=== PATIENT | female | born 1955 | race Caucasian/White ===

== ENCOUNTER → 2017-12-25 | Outpatient (CLI) | payer MEDICARE ==
[2017-12-25 09:50] LABS: IMMATURE GRANULOCYTE % 0.3 % (0-3.0)
[2017-12-25 10:09] LABS: FREE T4 0.76 NG/DL (0.76-1.46); GLOMERULAR FILTRATION RATE > 60.0 (>45)
[2017-12-25 11:55] LABS: BLOOD UREA NITROGEN 19 MG/DL (7-18); GLUCOSE, FASTING 81 MG/DL (70-100)
[2017-12-25 11:56] LABS: ALKALINE PHOSPHATASE 45 U/L (45-117); ALT/SGPT 21 U/L (12-78); ANION GAP 8 MEQ/L (8-16); AST/SGOT 15 U/L (7-37); BILIRUBIN,TOTAL 0.4 MG/DL (0.2-1.0); CALCIUM LEVEL 9.1 MG/DL (8.8-10.2); CARBON DIOXIDE LEVEL 30 MEQ/L (21-32); CHLORIDE LEVEL 106 MEQ/L (98-107); CHOLESTEROL LEVEL 210 MG/DL (<200); CHOLESTEROL RISK RATIO 2.957 (<5); HDL CHOLESTEROL 71 MG/DL (>40); LDL CHOLESTEROL 123.2 MG/DL (<100); NON-HDL-C 139 MG/DL; POTASSIUM SERUM 4.2 MEQ/L (3.5-5.1); SODIUM LEVEL 144 MEQ/L (136-145); TOTAL PROTEIN 6.6 GM/DL (6.4-8.2); TRIGLYCERIDES LEVEL 79 MG/DL (<150)
[2017-12-25 11:57] LABS: ALBUMIN 4.1 GM/DL (3.2-5.2); ALBUMIN/GLOBULIN RATIO 1.64 (1.00-1.93); MAGNESIUM LEVEL 2.2 MG/DL (1.8-2.4)
[2017-12-25 12:03] LABS: HEMATOCRIT 39.6 % (36.0-47.0); HEMOGLOBIN 13.1 g/dl (12.0-16.0); MEAN CORPUSCULAR HEMOGLOBIN 30.6 pg (27.0-33.0); MEAN CORPUSCULAR HGB CONC 33.1 g/dl (32.0-36.5); MEAN CORPUSCULAR VOLUME 92.5 fl (80.0-96.0); PLATELET COUNT, AUTOMATED 243 10^3/uL (150-450); RED BLOOD COUNT 4.28 10^6/uL (4.00-5.40); RED CELL DISTRIBUTION WIDTH 12.2 % (11.5-14.5); WHITE BLOOD COUNT 5.9 10^3/uL (4.0-10.0)
[2017-12-25 12:08] LABS: BASO % 0.5 % (0.0-1.0); EOS # 0.2 10^3/uL (0.0-0.50); EOS % 2.9 % (0.0-3.0); LYMPH % 16.9 % (24.0-44.0); MONO # 0.5 10^3/uL (0.0-0.8); MONO % 8.1 % (0.0-5.0); NEUTROPHILS # 4.2 10^3/uL (1.8-7.7); NEUTROPHILS % 71.3 % (36.0-66.0)
[2017-12-27 10:36] LABS: TOTAL 25(OH) VITAMIN D 39.2 NG/ML (30.0-100.0)
== END ==
LOC: M LAB 09:08
DX: Z00.00 Encounter for general adult medical examination without abnormal findings (principal); M85.80 Other specified disorders of bone density and structure, unspecified site; G43.019 Migraine without aura, intractable, without status migrainosus; E78.5 Hyperlipidemia, unspecified; E55.9 Vitamin D deficiency, unspecified
CPT/HCPCS: 83735

== ENCOUNTER → 2018-01-31 | Outpatient (CLI) | payer OTHER | LOC: M WHC 14:25 | DX: Z12.31 Encounter for screening mammogram for malignant neoplasm of breast (principal); Z78.0 Asymptomatic menopausal state; Z80.3 Family history of malignant neoplasm of breast; Z80.0 Family history of malignant neoplasm of digestive organs | CPT/HCPCS: 77067 ==

== ENCOUNTER → 2018-02-01 | Outpatient (CLI) | payer OTHER | LOC: M PAIN 09:15 | DX: M79.7 Fibromyalgia (principal); G89.29 Other chronic pain; G43.909 Migraine, unspecified, not intractable, without status migrainosus; F32.9 Major depressive disorder, single episode, unspecified; F41.9 Anxiety disorder, unspecified; E78.5 Hyperlipidemia, unspecified; M85.9 Disorder of bone density and structure, unspecified; J30.1 Allergic rhinitis due to pollen; Z79.899 Other long term (current) drug therapy; Z88.0 Allergy status to penicillin; Z88.8 Allergy status to other drugs, medicaments and biological substances; Z91.09 Other allergy status, other than to drugs and biological substances; Z87.891 Personal history of nicotine dependence | CPT/HCPCS: G0463 ==

== ENCOUNTER → 2018-03-04 | Outpatient (CLI) | payer OTHER | LOC: M PAIN 09:15 | DX: M79.7 Fibromyalgia (principal); G43.909 Migraine, unspecified, not intractable, without status migrainosus; F31.9 Bipolar disorder, unspecified; F41.9 Anxiety disorder, unspecified; E78.5 Hyperlipidemia, unspecified; M85.80 Other specified disorders of bone density and structure, unspecified site; J30.2 Other seasonal allergic rhinitis; Z79.899 Other long term (current) drug therapy; Z88.0 Allergy status to penicillin; Z88.8 Allergy status to other drugs, medicaments and biological substances; Z87.891 Personal history of nicotine dependence; Z91.011 Allergy to milk products | CPT/HCPCS: G0463 ==

== ENCOUNTER → 2018-04-06 | Outpatient (CLI) | payer OTHER ==
[2018-04-06 11:38] LABS: BASO % 0.4 % (0.0-1.0); EOS # 0.1 10^3/uL (0.0-0.50); EOS % 0.9 % (0.0-3.0); HEMATOCRIT 33.9 % (36.0-47.0); HEMOGLOBIN 11.1 g/dl (12.0-15.5); IMMATURE GRANULOCYTE % 0.4 % (0-3.0); LYMPH # 0.8 10^3/uL (1.5-4.5); LYMPH % 9.9 % (24.0-44.0); MEAN CORPUSCULAR HEMOGLOBIN 30.2 pg (27.0-33.0); MEAN CORPUSCULAR HGB CONC 32.7 g/dl (32.0-36.5); MEAN CORPUSCULAR VOLUME 92.1 fl (80.0-96.0); MONO # 0.8 10^3/uL (0.0-0.8); MONO % 10.4 % (0.0-5.0); NEUTROPHILS # 6.2 10^3/uL (1.8-7.7); PLATELET COUNT, AUTOMATED 299 10^3/uL (150-450); RED BLOOD COUNT 3.68 10^6/uL (4.00-5.40); RED CELL DISTRIBUTION WIDTH 12.1 % (11.5-14.5)
[2018-04-06 12:02] LABS: ALBUMIN 3.4 GM/DL (3.2-5.2); ALBUMIN/GLOBULIN RATIO 1.17 (1.00-1.93); ALKALINE PHOSPHATASE 62 U/L (45-117); ALT/SGPT 19 U/L (12-78); ANION GAP 6 MEQ/L (8-16); AST/SGOT 13 U/L (7-37); BILIRUBIN,TOTAL 0.4 MG/DL (0.2-1.0); BLOOD UREA NITROGEN 18 MG/DL (7-18); CALCIUM LEVEL 8.9 MG/DL (8.8-10.2); CARBON DIOXIDE LEVEL 30 MEQ/L (21-32); CHLORIDE LEVEL 103 MEQ/L (98-107); CREATININE FOR GFR 0.95 MG/DL (0.55-1.30); GLOMERULAR FILTRATION RATE > 60.0 (>45); GLUCOSE, FASTING 73 MG/DL (70-100); POTASSIUM SERUM 4.7 MEQ/L (3.5-5.1); SODIUM LEVEL 139 MEQ/L (136-145); TOTAL PROTEIN 6.3 GM/DL (6.4-8.2)
[2018-04-08 00:06] LABS: HSV-1 DNA Negative (Negative); HSV-2 DNA Negative (Negative); Lyme Disease IgG/IgM Antibodie <0.91 ISR (0.00-0.90); Lyme Disease IgM Ab Quantitati <0.80 index (0.00-0.79)
== END ==
LOC: M LAB 10:50
DX: R52 Pain, unspecified (principal); R53.83 Other fatigue; Z86.19 Personal history of other infectious and parasitic diseases
CPT/HCPCS: 80053

== ENCOUNTER → 2018-04-12 | Outpatient (REF) | payer OTHER ==
[2018-04-12 15:24] LABS: BASO % 0.5 % (0.0-1.0); EOS # 0.1 10^3/uL (0.0-0.50); EOS % 1.4 % (0.0-3.0); HEMATOCRIT 33.1 % (36.0-47.0); HEMOGLOBIN 10.7 g/dl (12.0-15.5); IMMATURE GRANULOCYTE % 0.3 % (0-3.0); LYMPH # 1.4 10^3/uL (1.5-4.5); LYMPH % 17.3 % (24.0-44.0); MEAN CORPUSCULAR HEMOGLOBIN 30.1 pg (27.0-33.0); MEAN CORPUSCULAR HGB CONC 32.3 g/dl (32.0-36.5); MEAN CORPUSCULAR VOLUME 93.2 fl (80.0-96.0); MONO # 0.5 10^3/uL (0.0-0.8); MONO % 6.9 % (0.0-5.0); NEUTROPHILS # 5.8 10^3/uL (1.8-7.7); NEUTROPHILS % 73.6 % (36.0-66.0); PLATELET COUNT, AUTOMATED 423 10^3/uL (150-450); RED BLOOD COUNT 3.55 10^6/uL (4.00-5.40); RED CELL DISTRIBUTION WIDTH 11.9 % (11.5-14.5); RETIC HEMOGLOBIN EQUIVALENT 28.6 pg (24-36); RETICULOCYTE # 33.4 10^9/L (17-77); RETICULOCYTE % 0.9 % (0.5-1.5); WHITE BLOOD COUNT 7.9 10^3/uL (4.0-10.0)
[2018-04-12 15:40] LABS: FERRITIN 111 NG/ML (8-252); IRON (FE) 17 UG/DL (50-170); PERCENT SATURATION 7.3 % (13.2-45.0); RHEUMATOID FACTOR QUANT 18.1 IU/ML (<15.0); TOTAL IRON BINDING CAPACITY 233 UG/DL (250-450)
[2018-04-12 15:44] LABS: ERYTHROCYTE SEDIMENTATION RATE 105 mm/hr (0-30)
[2018-04-14 18:21] LABS: CPK CREATINE PHOSPHOKINASE 45 U/L (26-192)
[2018-04-16 00:12] LABS: ANA (HEP2) Negative (.)
[2018-04-17 08:57] LABS: CYCLIC CITRULLINATED PEPTIDE 4 units (0-19)
== END ==
LOC: M SFHCPLAZ 13:23
DX: D64.9 Anemia, unspecified (principal); R61 Generalized hyperhidrosis; R53.83 Other fatigue

== ENCOUNTER → 2018-04-13 | Outpatient (CLI) | payer OTHER | LOC: M RAD 09:45 | DX: R61 Generalized hyperhidrosis (principal); R91.8 Other nonspecific abnormal finding of lung field | CPT/HCPCS: 71046 ==

== ENCOUNTER → 2018-04-18 | Outpatient (REF) | payer OTHER ==
[2018-04-18 12:42] LABS: ERYTHROCYTE SEDIMENTATION RATE 77 mm/hr (0-30)
== END ==
LOC: M SFHCPLAZ 09:45
DX: R51 Headache (principal)

== ENCOUNTER → 2018-04-19 | Outpatient (REF) | payer OTHER | LOC: M LAB REF 18:27 | DX: I77.9 Disorder of arteries and arterioles, unspecified (principal) | CPT/HCPCS: 88305 ==

== ENCOUNTER → 2018-04-22 | Outpatient (CLI) | payer OTHER | LOC: M PAIN 08:45 | DX: M79.7 Fibromyalgia (principal); M81.0 Age-related osteoporosis without current pathological fracture; F32.9 Major depressive disorder, single episode, unspecified; F41.9 Anxiety disorder, unspecified; J30.1 Allergic rhinitis due to pollen; E78.5 Hyperlipidemia, unspecified; G43.D0 Abdominal migraine, not intractable; Z87.891 Personal history of nicotine dependence; Z79.899 Other long term (current) drug therapy; Z88.0 Allergy status to penicillin; Z88.8 Allergy status to other drugs, medicaments and biological substances | CPT/HCPCS: G0463 ==

== ENCOUNTER → 2018-04-27 | Outpatient (REF) | payer OTHER ==
[2018-04-27 12:06] LABS: ERYTHROCYTE SEDIMENTATION RATE 31 mm/hr (0-30)
[2018-04-27 12:33] LABS: ANION GAP 8 MEQ/L (8-16); BLOOD UREA NITROGEN 20 MG/DL (7-18); C REACTIVE PROTEIN QUANTITATIV < 0.30 MG/DL (0.00-0.30); CALCIUM LEVEL 9.3 MG/DL (8.8-10.2); CARBON DIOXIDE LEVEL 31 MEQ/L (21-32); CHLORIDE LEVEL 104 MEQ/L (98-107); CREATININE FOR GFR 0.93 MG/DL (0.55-1.30); GLOMERULAR FILTRATION RATE > 60.0 (>45); GLUCOSE, FASTING 81 MG/DL (70-100); POTASSIUM SERUM 4.4 MEQ/L (3.5-5.1); SODIUM LEVEL 143 MEQ/L (136-145)
== END ==
LOC: M SFHCPLAZ 09:17
DX: R51 Headache (principal)
CPT/HCPCS: 80048

== ENCOUNTER 2018-05-05 17:17 | Inpatient (IN) | payer OTHER ==
[2018-05-05 18:03] LABS: HEMATOCRIT 34.9 % (36.0-47.0); HEMOGLOBIN 11.2 g/dl (12.0-15.5); IMMATURE GRANULOCYTE % 0.5 % (0-3.0); LYMPH # 0.3 10^3/uL (1.5-4.5); LYMPH % 2.3 % (24.0-44.0); MEAN CORPUSCULAR HEMOGLOBIN 29.7 pg (27.0-33.0); MEAN CORPUSCULAR HGB CONC 32.1 g/dl (32.0-36.5); MEAN CORPUSCULAR VOLUME 92.6 fl (80.0-96.0); MONO # 0.4 10^3/uL (0.0-0.8); MONO % 2.9 % (0.0-5.0); NEUTROPHILS # 11.6 10^3/uL (1.8-7.7); PLATELET COUNT, AUTOMATED 291 10^3/uL (150-450); RED BLOOD COUNT 3.77 10^6/uL (4.00-5.40); RED CELL DISTRIBUTION WIDTH 13.8 % (11.5-14.5); WHITE BLOOD COUNT 12.3 10^3/uL (4.0-10.0)
[2018-05-05 18:11] LABS: INR 0.98; PROTHROMBIN TIME 13.1 SECONDS (12.1-14.4)
[2018-05-05 18:14] LABS: ALBUMIN/GLOBULIN RATIO 0.67 (1.00-1.93); ALKALINE PHOSPHATASE 68 U/L (45-117); ALT/SGPT 20 U/L (12-78); ANION GAP 8 MEQ/L (8-16); AST/SGOT 14 U/L (7-37); BILIRUBIN,DIRECT < 0.1 MG/DL (0.0-0.2); BILIRUBIN,TOTAL 0.3 MG/DL (0.2-1.0); BLOOD UREA NITROGEN 20 MG/DL (7-18); CARBON DIOXIDE LEVEL 28 MEQ/L (21-32); CHLORIDE LEVEL 100 MEQ/L (98-107); CPK CREATINE PHOSPHOKINASE 46 U/L (26-192); CREATININE FOR GFR 1.08 MG/DL (0.55-1.30); GLOMERULAR FILTRATION RATE 54.4 (>45); GLUCOSE, FASTING 203 MG/DL (70-100); LIPASE 150 U/L (73-393); POTASSIUM SERUM 5.1 MEQ/L (3.5-5.1); SODIUM LEVEL 136 MEQ/L (136-145); TOTAL PROTEIN 7.5 GM/DL (6.4-8.2); TROPONIN I < 0.02 NG/ML (< 0.10)
[2018-05-05] MEDS ORDERED: ISOVUE-370 76% 100ML VIAL (Q9967) As Ordered (18:17)
[2018-05-05 18:19] LABS: CK-MB VALUE MASS < 1.0 NG/ML (<3.6); MB/CK RELATIVE INDEX 2.17 (< OR =4); NT-PRO BNP 565 PG/ML (<125); THYROID STIMULATING HORMONE 0.203 uIU/ML (0.358-3.740)
[2018-05-05] MEDS: KETOROLAC 30 MG/ML VIAL (J1885) IV (18:19)
[2018-05-05 18:27] LABS: POSITIVE DIFF POS FLAG
[2018-05-05 18:28] LABS: NEUTROPHILS % 94.3 % (36.0-66.0)
[2018-05-05 18:48] LABS: ERYTHROCYTE SEDIMENTATION RATE 89 mm/hr (0-30)
[2018-05-05] MEDS: cefTRIAXone SOD 2 GM in D5W MINI-BAG PLUS 50 ML IV (19:19)
[2018-05-05] MEDS ORDERED: zolPIDEM TARTRATE 5 MG TAB PO (20:15)
[2018-05-05] MEDS: VANCOMYCIN HCL 1,000 MG, VIAL MATE ADAPTER 1 EACH in D5W 250 ML IV (21:00)
[2018-05-05] MEDS: diphenhydrAMINE 25 MG CAP PO (22:28)
[2018-05-05] MEDS: SENOKOT S TAB PO (22:29)
[2018-05-05] MEDS: LevoFLOXacin IV 750 MG in APPROPRIATE DILUENT 1 EA IV (22:29)
[2018-05-05] MEDS: ENOXAPARIN 40 MG/0.4 ML SYRINGE (J1650) SC (22:29)
[2018-05-05] MEDS: clonazePAM 1 MG TAB PO (22:39)
[2018-05-05] MEDS: PERCOCET 5MG/325MG TAB PO (22:54)
[2018-05-06] MEDS: VANCOMYCIN HCL 1,000 MG, VIAL MATE ADAPTER 1 EACH in D5W 250 ML IV ×2 (00:27→22:17)
[2018-05-06] MEDS: PERCOCET 5MG/325MG TAB PO ×5 (03:04→22:17)
[2018-05-06] MEDS: ACETAMINOPHEN TAB 650MG DOSE (2X325MG) PO ×2 (05:59→22:15)
[2018-05-06 06:30] LABS: EOS % 0.3 % (0.0-3.0); HEMOGLOBIN 10.4 g/dl (12.0-15.5); IMMATURE GRANULOCYTE % 0.7 % (0-3.0); LYMPH # 1.7 10^3/uL (1.5-4.5); LYMPH % 15.2 % (24.0-44.0); MEAN CORPUSCULAR HEMOGLOBIN 30.1 pg (27.0-33.0); MEAN CORPUSCULAR HGB CONC 32.5 g/dl (32.0-36.5); MEAN CORPUSCULAR VOLUME 92.8 fl (80.0-96.0); MONO # 0.9 10^3/uL (0.0-0.8); MONO % 7.9 % (0.0-5.0); NEUTROPHILS # 8.2 10^3/uL (1.8-7.7); NEUTROPHILS % 75.9 % (36.0-66.0); PLATELET COUNT, AUTOMATED 269 10^3/uL (150-450); RED BLOOD COUNT 3.45 10^6/uL (4.00-5.40); RED CELL DISTRIBUTION WIDTH 13.8 % (11.5-14.5); WHITE BLOOD COUNT 10.8 10^3/uL (4.0-10.0)
[2018-05-06 06:44] LABS: ANION GAP 7 MEQ/L (8-16); BLOOD UREA NITROGEN 16 MG/DL (7-18); CALCIUM LEVEL 8.9 MG/DL (8.8-10.2); CARBON DIOXIDE LEVEL 31 MEQ/L (21-32); CHLORIDE LEVEL 101 MEQ/L (98-107); CREATININE FOR GFR 0.86 MG/DL (0.55-1.30); GLOMERULAR FILTRATION RATE > 60.0 (>45); GLUCOSE, FASTING 97 MG/DL (70-100); POTASSIUM SERUM 4.1 MEQ/L (3.5-5.1); SODIUM LEVEL 139 MEQ/L (136-145)
[2018-05-06] MEDS: predniSONE 10 MG TAB PO (08:21)
[2018-05-06] MEDS: PANTOPRAZOLE 40MG TAB (PROTONIX) PO (08:21)
[2018-05-06] MEDS: SENOKOT S TAB PO ×2 (08:21→22:15)
[2018-05-06] MEDS: LORATADINE 10 MG TAB PO (08:21)
[2018-05-06] MEDS: DULoxetine 30 MG CAP (CYMBALTA) PO (08:21)
[2018-05-06] MEDS ORDERED: LEVALBUTEROL 1.25 MG/0.5 ML CONCENTRATE NEB INH (17:45)
[2018-05-06] MEDS: LACTOBACILLUS ACIDOPHILUS CAP (BACID) PO (22:16)
[2018-05-06] MEDS: clonazePAM 1 MG TAB PO (22:16)
[2018-05-06] MEDS: diphenhydrAMINE 25 MG CAP PO (22:16)
[2018-05-06] MEDS: MAGNESIUM OXIDE 400 MG TAB (MAG-OX) PO (22:16)
[2018-05-06] MEDS: ENOXAPARIN 40 MG/0.4 ML SYRINGE (J1650) SC (22:17)
[2018-05-07] MEDS: VANCOMYCIN HCL 1,000 MG, VIAL MATE ADAPTER 1 EACH in D5W 250 ML IV ×2 (00:30→22:49)
[2018-05-07] MEDS: PERCOCET 5MG/325MG TAB PO ×5 (02:33→22:47)
[2018-05-07 06:16] LABS: BASO % 0.1 % (0.0-1.0); EOS # 0.1 10^3/uL (0.0-0.50); EOS % 0.5 % (0.0-3.0); HEMATOCRIT 32.5 % (36.0-47.0); HEMOGLOBIN 10.5 g/dl (12.0-15.5); IMMATURE GRANULOCYTE % 0.5 % (0-3.0); LYMPH # 1.1 10^3/uL (1.5-4.5); LYMPH % 8.6 % (24.0-44.0); MEAN CORPUSCULAR HEMOGLOBIN 29.7 pg (27.0-33.0); MEAN CORPUSCULAR HGB CONC 32.3 g/dl (32.0-36.5); MEAN CORPUSCULAR VOLUME 91.8 fl (80.0-96.0); MONO # 0.7 10^3/uL (0.0-0.8); MONO % 5.6 % (0.0-5.0); NEUTROPHILS # 11.2 10^3/uL (1.8-7.7); NEUTROPHILS % 84.7 % (36.0-66.0); PLATELET COUNT, AUTOMATED 258 10^3/uL (150-450); RED BLOOD COUNT 3.54 10^6/uL (4.00-5.40); RED CELL DISTRIBUTION WIDTH 13.9 % (11.5-14.5); WHITE BLOOD COUNT 13.2 10^3/uL (4.0-10.0)
[2018-05-07] MEDS: ACETAMINOPHEN TAB 650MG DOSE (2X325MG) PO ×2 (06:28→22:47)
[2018-05-07 06:39] LABS: ANION GAP 6 MEQ/L (8-16); BLOOD UREA NITROGEN 12 MG/DL (7-18); CALCIUM LEVEL 8.7 MG/DL (8.8-10.2); CARBON DIOXIDE LEVEL 31 MEQ/L (21-32); CHLORIDE LEVEL 100 MEQ/L (98-107); CREATININE FOR GFR 0.87 MG/DL (0.55-1.30); GLOMERULAR FILTRATION RATE > 60.0 (>45); GLUCOSE, FASTING 90 MG/DL (70-100); POTASSIUM SERUM 4.1 MEQ/L (3.5-5.1); SODIUM LEVEL 137 MEQ/L (136-145)
[2018-05-07] MEDS: PANTOPRAZOLE 40MG TAB (PROTONIX) PO (07:58)
[2018-05-07] MEDS: LORATADINE 10 MG TAB PO (07:58)
[2018-05-07] MEDS: SENOKOT S TAB PO ×2 (07:58→21:18)
[2018-05-07] MEDS: predniSONE 10 MG TAB PO (07:58)
[2018-05-07] MEDS: LIDOCAINE 5% (LIDODERM) PATCH TD (07:59)
[2018-05-07] MEDS: DULoxetine 30 MG CAP (CYMBALTA) PO (07:59)
[2018-05-07] MEDS: diphenhydrAMINE 25 MG CAP PO (21:13)
[2018-05-07] MEDS: LACTOBACILLUS ACIDOPHILUS CAP (BACID) PO (21:13)
[2018-05-07] MEDS: MAGNESIUM OXIDE 400 MG TAB (MAG-OX) PO (21:14)
[2018-05-07] MEDS: LevoFLOXacin IV 750 MG in APPROPRIATE DILUENT 1 EA IV (21:14)
[2018-05-07] MEDS: ENOXAPARIN 40 MG/0.4 ML SYRINGE (J1650) SC (21:14)
[2018-05-07] MEDS: DOCUSATE SODIUM 100 MG CAP PO (21:14)
[2018-05-07] MEDS: **NOTE PATIENT COMMENT** MISC XX (21:15)
[2018-05-07] MEDS: clonazePAM 1 MG TAB PO (21:18)
[2018-05-07 21:46] LABS: VANCOMYCIN LEVEL TROUGH 3.6 UG/ML (10.0-20.0)
[2018-05-08] MEDS: VANCOMYCIN HCL 1,000 MG, VIAL MATE ADAPTER 1 EACH in D5W 250 ML IV ×3 (00:30→22:11)
[2018-05-08] MEDS: PERCOCET 5MG/325MG TAB PO ×3 (04:00→16:15)
[2018-05-08 06:54] LABS: BASO % 0.1 % (0.0-1.0); EOS # 0.1 10^3/uL (0.0-0.50); EOS % 0.7 % (0.0-3.0); HEMATOCRIT 32.6 % (36.0-47.0); HEMOGLOBIN 10.5 g/dl (12.0-15.5); IMMATURE GRANULOCYTE % 0.8 % (0-3.0); LYMPH % 5.6 % (24.0-44.0); MEAN CORPUSCULAR HEMOGLOBIN 29.8 pg (27.0-33.0); MEAN CORPUSCULAR HGB CONC 32.2 g/dl (32.0-36.5); MEAN CORPUSCULAR VOLUME 92.6 fl (80.0-96.0); MONO # 0.8 10^3/uL (0.0-0.8); MONO % 4.5 % (0.0-5.0); NEUTROPHILS # 15.9 10^3/uL (1.8-7.7); NEUTROPHILS % 88.3 % (36.0-66.0); PLATELET COUNT, AUTOMATED 266 10^3/uL (150-450); RED BLOOD COUNT 3.52 10^6/uL (4.00-5.40)
[2018-05-08 07:04] LABS: ANION GAP 9 MEQ/L (8-16); BLOOD UREA NITROGEN 11 MG/DL (7-18); CALCIUM LEVEL 8.5 MG/DL (8.8-10.2); CARBON DIOXIDE LEVEL 31 MEQ/L (21-32); CHLORIDE LEVEL 102 MEQ/L (98-107); CREATININE FOR GFR 0.77 MG/DL (0.55-1.30); GLOMERULAR FILTRATION RATE > 60.0 (>45); GLUCOSE, FASTING 96 MG/DL (70-100); POTASSIUM SERUM 4.1 MEQ/L (3.5-5.1); SODIUM LEVEL 142 MEQ/L (136-145)
[2018-05-08] MEDS: DULoxetine 30 MG CAP (CYMBALTA) PO (08:53)
[2018-05-08] MEDS: LIDOCAINE 5% (LIDODERM) PATCH TD (08:53)
[2018-05-08] MEDS: SENOKOT S TAB PO ×2 (08:54→20:24)
[2018-05-08] MEDS: LORATADINE 10 MG TAB PO (08:54)
[2018-05-08] MEDS: PANTOPRAZOLE 40MG TAB (PROTONIX) PO (08:54)
[2018-05-08] MEDS: predniSONE 10 MG TAB PO (08:54)
[2018-05-08] MEDS: MIRALAX *UNIT DOSE* 17GM PACKET PO (08:55)
[2018-05-08] MEDS: LevoFLOXacin IV 750 MG in APPROPRIATE DILUENT 1 EA IV (11:36)
[2018-05-08] MEDS: NAPROXEN 250 MG TAB PO ×2 (11:37→20:25)
[2018-05-08] MEDS: LACTOBACILLUS ACIDOPHILUS CAP (BACID) PO (20:24)
[2018-05-08] MEDS: diphenhydrAMINE 25 MG CAP PO (20:24)
[2018-05-08] MEDS: DOCUSATE SODIUM 100 MG CAP PO (20:24)
[2018-05-08] MEDS: MAGNESIUM OXIDE 400 MG TAB (MAG-OX) PO (20:25)
[2018-05-08] MEDS: clonazePAM 1 MG TAB PO (20:25)
[2018-05-08] MEDS: **NOTE PATIENT COMMENT** MISC XX (20:26)
[2018-05-08] MEDS: ENOXAPARIN 40 MG/0.4 ML SYRINGE (J1650) SC (20:26)
[2018-05-09] MEDS: PERCOCET 5MG/325MG TAB PO (00:37)
[2018-05-09 06:19] LABS: BASO % 0.1 % (0.0-1.0); EOS % 0.2 % (0.0-3.0); HEMATOCRIT 29.7 % (36.0-47.0); HEMOGLOBIN 9.7 g/dl (12.0-15.5); IMMATURE GRANULOCYTE % 1.6 % (0-3.0); LYMPH # 0.8 10^3/uL (1.5-4.5); LYMPH % 4.6 % (24.0-44.0); MEAN CORPUSCULAR HEMOGLOBIN 30.3 pg (27.0-33.0); MEAN CORPUSCULAR HGB CONC 32.7 g/dl (32.0-36.5); MEAN CORPUSCULAR VOLUME 92.8 fl (80.0-96.0); MONO # 0.7 10^3/uL (0.0-0.8); NEUTROPHILS % 89.5 % (36.0-66.0); PLATELET COUNT, AUTOMATED 291 10^3/uL (150-450); WHITE BLOOD COUNT 17.9 10^3/uL (4.0-10.0)
[2018-05-09] MEDS: LevoFLOXacin IV 750 MG in APPROPRIATE DILUENT 1 EA IV (08:39)
[2018-05-09] MEDS: DULoxetine 30 MG CAP (CYMBALTA) PO (08:43)
[2018-05-09] MEDS: LORATADINE 10 MG TAB PO (08:43)
[2018-05-09] MEDS: NAPROXEN 250 MG TAB PO ×2 (08:44→20:57)
[2018-05-09] MEDS: predniSONE 10 MG TAB PO (08:44)
[2018-05-09] MEDS: LIDOCAINE 5% (LIDODERM) PATCH TD (08:45)
[2018-05-09] MEDS: PANTOPRAZOLE 40MG TAB (PROTONIX) PO (08:45)
[2018-05-09] MEDS: SENOKOT S TAB PO ×2 (08:45→20:57)
[2018-05-09 09:53] LABS: VANCOMYCIN LEVEL TROUGH 18.2 UG/ML (10.0-20.0)
[2018-05-09] MEDS: MIRALAX *UNIT DOSE* 17GM PACKET PO (10:22)
[2018-05-09] MEDS: VANCOMYCIN HCL 1,000 MG, VIAL MATE ADAPTER 1 EACH in D5W 250 ML IV ×2 (10:35→22:38)
[2018-05-09] MEDS: FERROUS SULFATE 325MG TAB PO (14:51)
[2018-05-09] MEDS: ULTRACET TAB PO ×2 (15:13→22:37)
[2018-05-09] MEDS: ENOXAPARIN 40 MG/0.4 ML SYRINGE (J1650) SC (20:54)
[2018-05-09] MEDS: DOCUSATE SODIUM 100 MG CAP PO (20:55)
[2018-05-09] MEDS: LACTOBACILLUS ACIDOPHILUS CAP (BACID) PO (20:55)
[2018-05-09] MEDS: diphenhydrAMINE 25 MG CAP PO (20:55)
[2018-05-09] MEDS: MAGNESIUM OXIDE 400 MG TAB (MAG-OX) PO (20:57)
[2018-05-09] MEDS: **NOTE PATIENT COMMENT** MISC XX (21:00)
[2018-05-09] MEDS: MOM 30ML SUSPENSION UDC PO (21:15)
[2018-05-09] MEDS: clonazePAM 1 MG TAB PO (21:16)
[2018-05-10 06:57] LABS: BASO % 0.1 % (0.0-1.0); EOS # 0.1 10^3/uL (0.0-0.50); EOS % 0.7 % (0.0-3.0); HEMATOCRIT 28.6 % (36.0-47.0); HEMOGLOBIN 9.4 g/dl (12.0-15.5); IMMATURE GRANULOCYTE % 2.5 % (0-3.0); LYMPH # 1.4 10^3/uL (1.5-4.5); LYMPH % 9.8 % (24.0-44.0); MEAN CORPUSCULAR HEMOGLOBIN 30.2 pg (27.0-33.0); MEAN CORPUSCULAR HGB CONC 32.9 g/dl (32.0-36.5); MONO # 0.6 10^3/uL (0.0-0.8); MONO % 4.4 % (0.0-5.0); NEUTROPHILS # 11.4 10^3/uL (1.8-7.7); NEUTROPHILS % 82.5 % (36.0-66.0); PLATELET COUNT, AUTOMATED 310 10^3/uL (150-450); RED BLOOD COUNT 3.11 10^6/uL (4.00-5.40); RED CELL DISTRIBUTION WIDTH 14.2 % (11.5-14.5); WHITE BLOOD COUNT 13.8 10^3/uL (4.0-10.0)
[2018-05-10 07:22] LABS: FREE T4 0.84 NG/DL (0.76-1.46); IRON (FE) 25 UG/DL (50-170); PERCENT SATURATION 19.7 % (13.2-45.0); TOTAL IRON BINDING CAPACITY 127 UG/DL (250-450)
[2018-05-10] MEDS: LevoFLOXacin IV 750 MG in APPROPRIATE DILUENT 1 EA IV (08:29)
[2018-05-10] MEDS: DULoxetine 30 MG CAP (CYMBALTA) PO (08:29)
[2018-05-10] MEDS: predniSONE 10 MG TAB PO (08:30)
[2018-05-10] MEDS: NAPROXEN 250 MG TAB PO ×2 (08:30→21:13)
[2018-05-10] MEDS: PANTOPRAZOLE 40MG TAB (PROTONIX) PO (08:30)
[2018-05-10] MEDS: LORATADINE 10 MG TAB PO (08:30)
[2018-05-10] MEDS: SENOKOT S TAB PO ×2 (08:30→21:13)
[2018-05-10] MEDS: LIDOCAINE 5% (LIDODERM) PATCH TD (08:31)
[2018-05-10] MEDS: VANCOMYCIN HCL 1,000 MG, VIAL MATE ADAPTER 1 EACH in D5W 250 ML IV ×2 (10:02→22:29)
[2018-05-10] MEDS: ULTRACET TAB PO (13:35)
[2018-05-10] MEDS: **NOTE PATIENT COMMENT** MISC XX (21:00)
[2018-05-10] MEDS: ENOXAPARIN 40 MG/0.4 ML SYRINGE (J1650) SC (21:11)
[2018-05-10] MEDS: clonazePAM 1 MG TAB PO (21:11)
[2018-05-10] MEDS: MAGNESIUM OXIDE 400 MG TAB (MAG-OX) PO (21:12)
[2018-05-10] MEDS: diphenhydrAMINE 25 MG CAP PO (21:12)
[2018-05-10] MEDS: DOCUSATE SODIUM 100 MG CAP PO (21:12)
[2018-05-10] MEDS: LACTOBACILLUS ACIDOPHILUS CAP (BACID) PO (21:13)
[2018-05-10 21:52] LABS: VANCOMYCIN LEVEL TROUGH 17.3 UG/ML (10.0-20.0)
[2018-05-10] MEDS: MOM 30ML SUSPENSION UDC PO (22:29)
[2018-05-11 07:38] LABS: HEMATOCRIT 34.2 % (36.0-47.0); HEMOGLOBIN 11.1 g/dl (12.0-15.5); MEAN CORPUSCULAR HGB CONC 32.5 g/dl (32.0-36.5); MEAN CORPUSCULAR VOLUME 92.4 fl (80.0-96.0); PLATELET COUNT, AUTOMATED 385 10^3/uL (150-450); RED CELL DISTRIBUTION WIDTH 14.3 % (11.5-14.5); WHITE BLOOD COUNT 13.3 10^3/uL (4.0-10.0)
[2018-05-11 07:58] LABS: ADD MANUAL DIFFER YES; DIFF SLIDE NUMBER 38; POS COUNT POS FLAG; POSITIVE MORPH POS FLAG
[2018-05-11 08:19] LABS: ANION GAP 9 MEQ/L (8-16); BLOOD UREA NITROGEN 17 MG/DL (7-18); CALCIUM LEVEL 8.3 MG/DL (8.8-10.2); CARBON DIOXIDE LEVEL 29 MEQ/L (21-32); CHLORIDE LEVEL 104 MEQ/L (98-107); CREATININE FOR GFR 0.82 MG/DL (0.55-1.30); GLOMERULAR FILTRATION RATE > 60.0 (>45); GLUCOSE, FASTING 74 MG/DL (70-100); POTASSIUM SERUM 4.7 MEQ/L (3.5-5.1); SODIUM LEVEL 142 MEQ/L (136-145)
[2018-05-11 08:36] LABS: QUANTIFERON GOLD TB Negative (Negative); TB Test (QFT) Antigen 0.06 IU/mL (.); TB Test (QFT) Mitogen 6.54 IU/mL (.); TB Test (QFT) Nil 0.06 IU/mL (.)
[2018-05-11 08:40] LABS: ATYPICAL LYMPH 1 % (0-5); BANDS 1 % (< 11); EOSINOPHILS 4 % (0-5); LYMPHOCYTES 21 % (16-52); METAMYELOCYTES 3 % (0-0); MONOCYTES 6 % (0-8); MYELOCYTES 1 % (0-0); NEUTROPHILS 63 % (35-75)
[2018-05-11 08:41] LABS: ANISOCYTOSIS 1+; PLATELET ESTIMATE NORMAL (NORMAL); POLYCHROMASIA 1+
[2018-05-11] MEDS: LevoFLOXacin IV 750 MG in APPROPRIATE DILUENT 1 EA IV (08:55)
[2018-05-11] MEDS: LORATADINE 10 MG TAB PO (09:00)
[2018-05-11] MEDS: NAPROXEN 250 MG TAB PO (09:01)
[2018-05-11] MEDS: FERROUS SULFATE 325MG TAB PO (09:01)
[2018-05-11] MEDS: predniSONE 20 MG TAB PO (09:01)
[2018-05-11] MEDS: SENOKOT S TAB PO (09:01)
[2018-05-11] MEDS: DULoxetine 30 MG CAP (CYMBALTA) PO (09:01)
[2018-05-11] MEDS: PANTOPRAZOLE 40MG TAB (PROTONIX) PO (09:02)
[2018-05-11] MEDS: LIDOCAINE 5% (LIDODERM) PATCH TD (09:02)
[2018-05-11 09:46] LABS: THYROID PEROXIDASE ANTIBODY < 28.0 U/ML (<60.0)
[2018-05-11 09:51] LABS: THYROGLOBULIN ANTIBODY 31.7 U/ML (<60.0)
[2018-05-11] MEDS: VANCOMYCIN HCL 1,000 MG, VIAL MATE ADAPTER 1 EACH in D5W 250 ML IV (10:28)
[2018-05-11] MEDS: ULTRACET TAB PO (14:33)
[2018-05-12] MEDS ORDERED: LevoFLOXacin 750 MG TABLET PO (06:00)
[2018-05-13 08:13] LABS: THYROID STIMULATING IMMUNOGLOB <0.10 IU/L (0.00-0.55)
== END 2018-05-11 17:38 | disposition home or self-care (01) | DRG 137 ==
LOC: M PED 05-07 13:56 → M ED 17:17 → M ED INP 20:45 → M MSPAV 22:21
DX: J85.1 Abscess of lung with pneumonia (principal); J91.8 Pleural effusion in other conditions classified elsewhere; F32.9 Major depressive disorder, single episode, unspecified; M79.7 Fibromyalgia; F41.9 Anxiety disorder, unspecified; K59.00 Constipation, unspecified; M35.3 Polymyalgia rheumatica; J30.9 Allergic rhinitis, unspecified; D50.9 Iron deficiency anemia, unspecified; E05.80 Other thyrotoxicosis without thyrotoxic crisis or storm; Z88.0 Allergy status to penicillin; Z88.1 Allergy status to other antibiotic agents; Z79.52 Long term (current) use of systemic steroids; Z79.891 Long term (current) use of opiate analgesic; Z79.899 Other long term (current) drug therapy; Z87.891 Personal history of nicotine dependence

== ENCOUNTER → 2018-05-17 | Outpatient (CLI) | payer OTHER ==
[2018-05-17 12:24] LABS: HEMATOCRIT 34.8 % (36.0-47.0); HEMOGLOBIN 11.1 g/dl (12.0-15.5); MEAN CORPUSCULAR HEMOGLOBIN 29.7 pg (27.0-33.0); MEAN CORPUSCULAR HGB CONC 31.9 g/dl (32.0-36.5); PLATELET COUNT, AUTOMATED 714 10^3/uL (150-450); RED BLOOD COUNT 3.74 10^6/uL (4.00-5.40); RED CELL DISTRIBUTION WIDTH 14.6 % (11.5-14.5); WHITE BLOOD COUNT 12.6 10^3/uL (4.0-10.0)
[2018-05-17 12:42] LABS: ALBUMIN 2.8 GM/DL (3.2-5.2); ALBUMIN/GLOBULIN RATIO 0.78 (1.00-1.93); ALKALINE PHOSPHATASE 80 U/L (45-117); ALT/SGPT 20 U/L (12-78); ANION GAP 6 MEQ/L (8-16); AST/SGOT 12 U/L (7-37); BILIRUBIN,TOTAL 0.3 MG/DL (0.2-1.0); BLOOD UREA NITROGEN 19 MG/DL (7-18); C REACTIVE PROTEIN QUANTITATIV 2.27 MG/DL (0.00-0.30); CALCIUM LEVEL 9.4 MG/DL (8.8-10.2); CARBON DIOXIDE LEVEL 31 MEQ/L (21-32); CHLORIDE LEVEL 103 MEQ/L (98-107); CREATININE FOR GFR 1.07 MG/DL (0.55-1.30); GLUCOSE, FASTING 96 MG/DL (70-100); SODIUM LEVEL 140 MEQ/L (136-145); TOTAL PROTEIN 6.4 GM/DL (6.4-8.2)
[2018-05-17 12:44] LABS: ERYTHROCYTE SEDIMENTATION RATE 77 mm/hr (0-30)
[2018-05-17 12:58] LABS: ADD MANUAL DIFFER YES; DIFF SLIDE NUMBER 245; POS COUNT POS FLAG; POSITIVE MORPH POS FLAG
[2018-05-17 13:00] LABS: POTASSIUM SERUM 5.2 MEQ/L (3.5-5.1)
[2018-05-17 13:22] LABS: BANDS 2 % (< 11); LYMPHOCYTES 4 % (16-52); METAMYELOCYTES 1 % (0-0); MONOCYTES 2 % (0-8); NEUTROPHILS 91 % (35-75); PLATELET ESTIMATE INCREASED (NORMAL)
== END ==
LOC: M LAB 11:31
DX: J18.1 Lobar pneumonia, unspecified organism (principal); M35.3 Polymyalgia rheumatica; J91.8 Pleural effusion in other conditions classified elsewhere; J90 Pleural effusion, not elsewhere classified
CPT/HCPCS: 71046

== ENCOUNTER → 2018-05-24 | Outpatient (REF) | payer OTHER ==
[2018-05-24 19:20] LABS: BASO % 0.3 % (0.0-1.0); EOS % 0.1 % (0.0-3.0); HEMATOCRIT 37.1 % (36.0-47.0); HEMOGLOBIN 11.5 g/dl (12.0-15.5); LYMPH # 0.5 10^3/uL (1.5-4.5); LYMPH % 7.1 % (24.0-44.0); MEAN CORPUSCULAR HEMOGLOBIN 29.3 pg (27.0-33.0); MEAN CORPUSCULAR VOLUME 94.6 fl (80.0-96.0); MONO # 0.2 10^3/uL (0.0-0.8); MONO % 3.4 % (0.0-5.0); NEUTROPHILS # 6.2 10^3/uL (1.8-7.7); NEUTROPHILS % 87.1 % (36.0-66.0); PLATELET COUNT, AUTOMATED 590 10^3/uL (150-450); RED BLOOD COUNT 3.92 10^6/uL (4.00-5.40); RED CELL DISTRIBUTION WIDTH 14.8 % (11.5-14.5); WHITE BLOOD COUNT 7.2 10^3/uL (4.0-10.0)
[2018-05-24 21:11] LABS: ERYTHROCYTE SEDIMENTATION RATE 61 mm/hr (0-30)
[2018-05-27 00:06] LABS: ANCA-ATYPICAL <1:20 titer (Neg:<1:20); ANTI DOUBLE STRAND-DNA AB <1 IU/mL (0-9); ANTINUCLEAR ANTIBODIES DIRECT Negative (Negative); CYTOPLASMIC NEUTROP AB ANCA-C <1:20 titer (Neg:<1:20); PERINUCLEAR AB ANCA-P <1:20 titer (Neg:<1:20); RNP ANTIBODIES <0.2 AI (0.0-0.9); SJOGREN'S ANTI SS-A <0.2 AI (0.0-0.9); SJOGREN'S ANTI SS-B <0.2 AI (0.0-0.9); SMITH ANTIBODIES <0.2 AI (0.0-0.9)
== END ==
LOC: M LAB REF 17:27
DX: J18.9 Pneumonia, unspecified organism (principal)

== ENCOUNTER → 2018-05-30 | Outpatient (CLI) | payer OTHER ==
[~2018-05-30] MED LIST: ISOVUE-370 76% 100ML VIAL (Q9967) As Ordered
== END ==
LOC: M RAD 08:29
DX: J18.9 Pneumonia, unspecified organism (principal)
CPT/HCPCS: Q9967

== ENCOUNTER → 2018-05-31 | Outpatient (REF) | payer OTHER ==
[2018-05-31 19:57] LABS: FIBRINOGEN 483 MG/DL (221-452)
[2018-05-31 20:11] LABS: C REACTIVE PROTEIN QUANTITATIV < 0.30 MG/DL (0.00-0.30); FERRITIN 44 NG/ML (8-252); IMMUNOGLOBULIN G 740 MG/DL (681-1648); IMMUNOGLOBULIN M 99.8 MG/DL (40-230); TOTAL PROTEIN 6.8 GM/DL (6.4-8.2)
[2018-05-31 20:15] LABS: ERYTHROCYTE SEDIMENTATION RATE 57 mm/hr (0-30)
[2018-06-01 09:18] LABS: RUBELLA IgG QUALITATIVE IMMUNE (IMMUNE)
[2018-06-01 09:19] LABS: HEPATITIS B SURFACE ANTIGEN NEGATIVE (NEGATIVE)
[2018-06-01 09:24] LABS: HEPATITIS B SURFACE ANTIBODY POSITIVE (POSITIVE)
[2018-06-01 09:43] LABS: HEPATITIS C VIRUS ABY INDEX 0.1 INDEX (<0.8)
[2018-06-01 14:04] LABS: PROCALCITONIN <0.5 NG/ML (<0.10)
[2018-06-02 08:15] LABS: HEPATITIS B CORE ANTIBODY IGG Negative (Negative)
[2018-06-02 09:32] LABS: ALBUMIN % 58.2 % (55.8-66.1); ALPHA-1-GLOBULIN % 5.5 % (2.9-4.9); ALPHA-2-GLOBULINS % 13.6 % (7.1-11.8); BETA-1-GLOBULINS % 6.5 % (4.7-7.2); BETA-2-GLOBULINS % 4.8 % (3.2-6.5)
[2018-06-02 09:33] LABS: ALBUMIN 3.96 GM/DL (3.29-5.55); ALPHA-1-GLOBULINS 0.37 GM/DL (0.17-0.41); ALPHA-2-GLOBULINS 0.92 GM/DL (0.42-0.99); BETA-1-GLOBULINS 0.44 GM/DL (0.28-0.60); BETA-2-GLOBULINS 0.33 GM/DL (0.19-0.55); GAMMA GLOBULIN % 11.4 % (11.1-18.8); GAMMA GLOBULINS 0.78 GM/DL (0.65-1.58)
[2018-06-02 13:44] LABS: UPEP INTERPRETATION NO M-SPIKE NOTED; URINE VOLUME RANDOM ML
== END ==
LOC: M SFHCLERA 14:37
DX: M31.6 Other giant cell arteritis (principal)
CPT/HCPCS: 84165

== ENCOUNTER → 2018-06-16 | Outpatient (REF) | payer OTHER ==
[2018-06-16 13:24] LABS: BASO # 0.1 10^3/uL (0.0-0.2); BASO % 0.5 % (0.0-1.0); EOS # 0.1 10^3/uL (0.0-0.50); EOS % 0.7 % (0.0-3.0); HEMATOCRIT 35.2 % (36.0-47.0); HEMOGLOBIN 11.1 g/dl (12.0-15.5); LYMPH # 0.8 10^3/uL (1.5-4.5); LYMPH % 6.2 % (24.0-44.0); MEAN CORPUSCULAR HEMOGLOBIN 29.4 pg (27.0-33.0); MEAN CORPUSCULAR HGB CONC 31.5 g/dl (32.0-36.5); MEAN CORPUSCULAR VOLUME 93.4 fl (80.0-96.0); MONO # 0.8 10^3/uL (0.0-0.8); MONO % 5.9 % (0.0-5.0); NEUTROPHILS # 10.9 10^3/uL (1.8-7.7); NEUTROPHILS % 82.7 % (36.0-66.0); PLATELET COUNT, AUTOMATED 425 10^3/uL (150-450); RED BLOOD COUNT 3.77 10^6/uL (4.00-5.40); RED CELL DISTRIBUTION WIDTH 14.2 % (11.5-14.5); WHITE BLOOD COUNT 13.1 10^3/uL (4.0-10.0)
[2018-06-16 13:50] LABS: ERYTHROCYTE SEDIMENTATION RATE > 140 mm/hr (0-30)
[2018-06-16 14:37] LABS: ALBUMIN 2.9 GM/DL (3.2-5.2); ALBUMIN/GLOBULIN RATIO 0.73 (1.00-1.93); ALKALINE PHOSPHATASE 84 U/L (45-117); ALT/SGPT 17 U/L (12-78); ANION GAP 8 MEQ/L (8-16); AST/SGOT 9 U/L (7-37); BILIRUBIN,TOTAL 0.2 MG/DL (0.2-1.0); BLOOD UREA NITROGEN 16 MG/DL (7-18); CALCIUM LEVEL 9.2 MG/DL (8.8-10.2); CARBON DIOXIDE LEVEL 30 MEQ/L (21-32); CHLORIDE LEVEL 102 MEQ/L (98-107); CREATININE FOR GFR 0.83 MG/DL (0.55-1.30); GLOMERULAR FILTRATION RATE > 60.0 (>45); GLUCOSE, FASTING 70 MG/DL (70-100); SODIUM LEVEL 140 MEQ/L (136-145); TOTAL PROTEIN 6.9 GM/DL (6.4-8.2)
[2018-06-22 10:12] LABS: BODY FLUID CULTURE Not Indicated (.); CHLAMYDIA PNEUMONIAE IgG <1:16 (Neg:<1:16); CHLAMYDIA PNEUMONIAE IgM <1:10 (Neg:<1:10); CRYPTOCOCCUS ANTIBODY SERUM Negative (Neg:<1:2); CRYPTOCOCCUS ANTIGEN SER Negative (Negative); HISTOPLASMA GAL'MANNAN AG UR <0.5 (<0.5 ng/mL); HISTOPLASMOSIS ANTIBODY Negative (Neg:<1:1); LEGIONELLA ANTIGEN URINE Negative (Negative); MYCOPLASMA PNEUMONIAE IgG <100 U/mL (0-99); MYCOPLASMA PNEUMONIAE IgM <770 U/mL (0-769); ORGANISM ID Not indicated. (.); SPECIMEN SOURCE Urine (.); URINE STREP PNEUMONIAE ANTIGEN Negative (Negative)
== END ==
LOC: M SFHCPLAZ 11:00
DX: J18.1 Lobar pneumonia, unspecified organism (principal)

== ENCOUNTER → 2018-06-21 | Outpatient (CLI) | payer OTHER | LOC: M RAD 11:05 | DX: J90 Pleural effusion, not elsewhere classified (principal) | CPT/HCPCS: Q9967 ==

== ENCOUNTER → 2018-06-22 | Outpatient (REF) | payer OTHER ==
[2018-06-22 18:32] LABS: INR 0.96; PROTHROMBIN TIME 12.9 SECONDS (12.1-14.4)
[2018-06-22 18:33] LABS: PARTIAL THROMBOPLASTIN TIME 27.5 SECONDS (25.4-37.6)
[2018-06-22 18:48] LABS: LDH LACTATE DEHYDROGENASE 242 U/L (84-246)
== END ==
LOC: M LAB REF 17:08
DX: J18.9 Pneumonia, unspecified organism (principal)

== ENCOUNTER 2018-06-27 12:19 | Inpatient (IN) | payer OTHER ==
[2018-06-27] MEDS ORDERED: LIDOCAINE 1% MDV 20ML VIAL As Ordered (12:48)
[2018-06-27 14:31] LABS: SOURCE, BODY FLUID pH PLEURAL
[2018-06-27] MEDS ORDERED: ACETAMINOPHEN 325 MG TAB As Ordered (14:36)
[2018-06-27 14:39] LABS: RBC BODY FLUID 1730 10^3/uL (<2)
[2018-06-27 15:21] LABS: BF MONONUCLEAR CELL % 28.6 % (0-0); WBC BODY FLUID 93000 /uL (0-10)
[2018-06-27 15:22] LABS: APPEARANCE, BODY FLUID TURBID (CLEAR); BF DIFF IF INDICATED? YES (NO); BF POLYMORPHONUCLEAR CELL % 71.4 % (0-0); PLEURAL FL COLOR RED (COLORLESS); SOURCE, BODY FLUID PLEURAL
[2018-06-27] MEDS ORDERED: SLF 3 ML SYR IV (16:00)
[2018-06-27] MEDS: ENOXAPARIN 40 MG/0.4 ML SYRINGE (J1650) SC (16:11)
[2018-06-27 16:57] LABS: BASO % 0.4 % (0.0-1.0); HEMATOCRIT 36.1 % (36.0-47.0); HEMOGLOBIN 11.4 g/dl (12.0-15.5); IMMATURE GRANULOCYTE % 1.9 % (0-3.0); LYMPH # 0.4 10^3/uL (1.5-4.5); LYMPH % 3.6 % (24.0-44.0); MEAN CORPUSCULAR HGB CONC 31.6 g/dl (32.0-36.5); MEAN CORPUSCULAR VOLUME 91.9 fl (80.0-96.0); MONO # 0.2 10^3/uL (0.0-0.8); MONO % 1.8 % (0.0-5.0); NEUTROPHILS # 8.9 10^3/uL (1.8-7.7); NEUTROPHILS % 92.3 % (36.0-66.0); PLATELET COUNT, AUTOMATED 448 10^3/uL (150-450); RED BLOOD COUNT 3.93 10^6/uL (4.00-5.40); WHITE BLOOD COUNT 9.6 10^3/uL (4.0-10.0)
[2018-06-27 17:43] LABS: ALBUMIN 3.2 GM/DL (3.2-5.2); ALBUMIN/GLOBULIN RATIO 0.97 (1.00-1.93); ALKALINE PHOSPHATASE 70 U/L (45-117); ALT/SGPT 17 U/L (12-78); ANION GAP 9 MEQ/L (8-16); AST/SGOT 11 U/L (7-37); BILIRUBIN,TOTAL 0.2 MG/DL (0.2-1.0); BLOOD UREA NITROGEN 21 MG/DL (7-18); CALCIUM LEVEL 9.3 MG/DL (8.8-10.2); CARBON DIOXIDE LEVEL 28 MEQ/L (21-32); CHLORIDE LEVEL 103 MEQ/L (98-107); CREATININE FOR GFR 1.12 MG/DL (0.55-1.30); GLOMERULAR FILTRATION RATE 52.1 (>45); GLUCOSE, FASTING 184 MG/DL (70-100); MAGNESIUM LEVEL 2.6 MG/DL (1.8-2.4); POTASSIUM SERUM 5.1 MEQ/L (3.5-5.1); SODIUM LEVEL 140 MEQ/L (136-145); TOTAL PROTEIN 6.5 GM/DL (6.4-8.2)
[2018-06-27] MEDS: PERCOCET 5MG/325MG TAB PO ×2 (17:53→21:52)
[2018-06-27 18:09] LABS: BASO % 0.2 % (0.0-1.0); HEMATOCRIT 34.3 % (36.0-47.0); IMMATURE GRANULOCYTE % 1.7 % (0-3.0); LYMPH # 0.5 10^3/uL (1.5-4.5); LYMPH % 3.9 % (24.0-44.0); MEAN CORPUSCULAR HEMOGLOBIN 29.4 pg (27.0-33.0); MEAN CORPUSCULAR HGB CONC 32.1 g/dl (32.0-36.5); MEAN CORPUSCULAR VOLUME 91.7 fl (80.0-96.0); MONO # 0.7 10^3/uL (0.0-0.8); NEUTROPHILS # 11.7 10^3/uL (1.8-7.7); NEUTROPHILS % 89.2 % (36.0-66.0); PLATELET COUNT, AUTOMATED 437 10^3/uL (150-450); RED BLOOD COUNT 3.74 10^6/uL (4.00-5.40); WHITE BLOOD COUNT 13.1 10^3/uL (4.0-10.0)
[2018-06-27] MEDS: ALTEPLASE RECOMBINANT XX (19:00)
[2018-06-27] MEDS: NS XX (19:00)
[2018-06-27 19:08] LABS: ALBUMIN/GLOBULIN RATIO 0.97 (1.00-1.93); ALKALINE PHOSPHATASE 68 U/L (45-117); ALT/SGPT 17 U/L (12-78); ANION GAP 10 MEQ/L (8-16); AST/SGOT 13 U/L (7-37); BILIRUBIN,TOTAL 0.1 MG/DL (0.2-1.0); BLOOD UREA NITROGEN 23 MG/DL (7-18); CALCIUM LEVEL 8.7 MG/DL (8.8-10.2); CARBON DIOXIDE LEVEL 26 MEQ/L (21-32); CHLORIDE LEVEL 104 MEQ/L (98-107); CREATININE FOR GFR 1.17 MG/DL (0.55-1.30); GLOMERULAR FILTRATION RATE 49.6 (>45); GLUCOSE, FASTING 165 MG/DL (70-100); LDH LACTATE DEHYDROGENASE 245 U/L (84-246); POTASSIUM SERUM 4.8 MEQ/L (3.5-5.1); SODIUM LEVEL 140 MEQ/L (136-145); TOTAL PROTEIN 6.1 GM/DL (6.4-8.2)
[2018-06-27] MEDS: MEROPENEM INJ 1 GM in APPROPRIATE DILUENT 1 EA IV (19:52)
[2018-06-27] MEDS: SLF 3 ML SYR IV (21:22)
[2018-06-27] MEDS: NS 1,000 ML IV (22:36)
[2018-06-27] MEDS: clonazePAM 1 MG TAB PO (22:36)
[2018-06-28 00:32] LABS: LDH, BODY FLUID 1182 U/L (NOT ESTABLISHED); SOURCE, BODY FLUID LDH PLEURAL
[2018-06-28 00:50] LABS: SOURCE, BODY FLUID TOT PROTEIN PLEURAL; TOTAL PROTEIN, BODY FLUID 2.9 G/DL (NOT ESTABLISHED)
[2018-06-28] MEDS: MEROPENEM INJ 1 GM in APPROPRIATE DILUENT 1 EA IV ×3 (04:06→19:59)
[2018-06-28] MEDS: PERCOCET 5MG/325MG TAB PO ×3 (04:59→18:59)
[2018-06-28] MEDS: SLF 3 ML SYR IV ×3 (05:02→21:21)
[2018-06-28 05:50] LABS: BASO # 0.1 10^3/uL (0.0-0.2); BASO % 0.5 % (0.0-1.0); EOS # 0.2 10^3/uL (0.0-0.50); EOS % 1.6 % (0.0-3.0); HEMOGLOBIN 10.3 g/dl (12.0-15.5); IMMATURE GRANULOCYTE % 2.5 % (0-3.0); LYMPH # 1.7 10^3/uL (1.5-4.5); LYMPH % 17.1 % (24.0-44.0); MEAN CORPUSCULAR HEMOGLOBIN 28.5 pg (27.0-33.0); MEAN CORPUSCULAR HGB CONC 31.2 g/dl (32.0-36.5); MEAN CORPUSCULAR VOLUME 91.4 fl (80.0-96.0); MONO # 0.9 10^3/uL (0.0-0.8); MONO % 9.1 % (0.0-5.0); NEUTROPHILS % 69.2 % (36.0-66.0); PLATELET COUNT, AUTOMATED 395 10^3/uL (150-450); RED BLOOD COUNT 3.61 10^6/uL (4.00-5.40); WHITE BLOOD COUNT 10.2 10^3/uL (4.0-10.0)
[2018-06-28 05:59] LABS: ANION GAP 5 MEQ/L (8-16); BLOOD UREA NITROGEN 18 MG/DL (7-18); CALCIUM LEVEL 8.3 MG/DL (8.8-10.2); CARBON DIOXIDE LEVEL 28 MEQ/L (21-32); CHLORIDE LEVEL 107 MEQ/L (98-107); CREATININE FOR GFR 0.91 MG/DL (0.55-1.30); GLOMERULAR FILTRATION RATE > 60.0 (>45); GLUCOSE, FASTING 69 MG/DL (70-100); POTASSIUM SERUM 4.8 MEQ/L (3.5-5.1); SODIUM LEVEL 140 MEQ/L (136-145)
[2018-06-28 06:23] LABS: SOURCE, BODY FLUID AMYLASE PLEURAL; SOURCE, BODY FLUID GLUCOSE PLEURAL
[2018-06-28 06:27] LABS: AMYLASE, BODY FLUID < 2 U/L (NOT ESTABLISHED)
[2018-06-28] MEDS: ENOXAPARIN 40 MG/0.4 ML SYRINGE (J1650) SC (09:57)
[2018-06-28] MEDS: DULoxetine 30 MG CAP (CYMBALTA) PO (09:58)
[2018-06-28] MEDS: OMEPRAZOLE 20 MG CAP PO (09:58)
[2018-06-28] MEDS: BACTRIM 160MG/800MG DS TAB PO (09:58)
[2018-06-28] MEDS: predniSONE 20 MG TAB PO (09:58)
[2018-06-28] MEDS: NS 1,000 ML IV (12:19)
[2018-06-28] MEDS: ACETAMINOPHEN TAB 650MG DOSE (2X325MG) PO (15:09)
[2018-06-28] MEDS: RIZATRIPTAN BENZOATE 10 MG TAB PO (16:17)
[2018-06-28] MEDS: clonazePAM 1 MG TAB PO (19:59)
[2018-06-29] MEDS: PERCOCET 5MG/325MG TAB PO ×4 (00:37→21:16)
[2018-06-29] MEDS: NS 1,000 ML IV ×2 (03:40→18:07)
[2018-06-29] MEDS: MEROPENEM INJ 1 GM in APPROPRIATE DILUENT 1 EA IV ×3 (03:57→20:01)
[2018-06-29] MEDS: SLF 3 ML SYR IV ×3 (05:01→21:11)
[2018-06-29 05:53] LABS: BASO # 0.1 10^3/uL (0.0-0.2); BASO % 0.7 % (0.0-1.0); EOS # 0.1 10^3/uL (0.0-0.50); EOS % 1.5 % (0.0-3.0); HEMATOCRIT 30.7 % (36.0-47.0); HEMOGLOBIN 9.7 g/dl (12.0-15.5); IMMATURE GRANULOCYTE % 3.6 % (0-3.0); LYMPH # 1.8 10^3/uL (1.5-4.5); MEAN CORPUSCULAR HEMOGLOBIN 29.1 pg (27.0-33.0); MEAN CORPUSCULAR HGB CONC 31.6 g/dl (32.0-36.5); MEAN CORPUSCULAR VOLUME 92.2 fl (80.0-96.0); MONO # 0.7 10^3/uL (0.0-0.8); MONO % 8.9 % (0.0-5.0); NEUTROPHILS # 4.5 10^3/uL (1.8-7.7); NEUTROPHILS % 61.3 % (36.0-66.0); PLATELET COUNT, AUTOMATED 349 10^3/uL (150-450); RED BLOOD COUNT 3.33 10^6/uL (4.00-5.40); WHITE BLOOD COUNT 7.3 10^3/uL (4.0-10.0)
[2018-06-29 06:17] LABS: ANION GAP 5 MEQ/L (8-16); BLOOD UREA NITROGEN 18 MG/DL (7-18); CALCIUM LEVEL 8.1 MG/DL (8.8-10.2); CARBON DIOXIDE LEVEL 29 MEQ/L (21-32); CHLORIDE LEVEL 109 MEQ/L (98-107); CREATININE FOR GFR 0.84 MG/DL (0.55-1.30); GLOMERULAR FILTRATION RATE > 60.0 (>45); GLUCOSE, FASTING 74 MG/DL (70-100); POTASSIUM SERUM 4.5 MEQ/L (3.5-5.1); SODIUM LEVEL 143 MEQ/L (136-145)
[2018-06-29] MEDS ORDERED: INFLUENZA QUADRIVALENT PF VACCINE 0.5ML SYRINGE (90686) IM ×2 (09:00→16:30)
[2018-06-29] MEDS: DULoxetine 30 MG CAP (CYMBALTA) PO (09:12)
[2018-06-29] MEDS: OMEPRAZOLE 20 MG CAP PO (09:12)
[2018-06-29] MEDS: BACTRIM 160MG/800MG DS TAB PO (09:12)
[2018-06-29] MEDS: predniSONE 20 MG TAB PO (09:12)
[2018-06-29] MEDS: ENOXAPARIN 40 MG/0.4 ML SYRINGE (J1650) SC (09:13)
[2018-06-29] MEDS: ACETAMINOPHEN TAB 650MG DOSE (2X325MG) PO (11:00)
[2018-06-29] MEDS ORDERED: SODIUM CHLORIDE 0.9% INJ 10 ML SYR IV (15:00)
[2018-06-29] MEDS: SODIUM CHLORIDE 0.9% INJ 10 ML SYR IV (18:07)
[2018-06-29] MEDS: clonazePAM 1 MG TAB PO (20:01)
[2018-06-30] MEDS: MEROPENEM INJ 1 GM in APPROPRIATE DILUENT 1 EA IV ×2 (04:00→12:24)
[2018-06-30] MEDS: SODIUM CHLORIDE 0.9% INJ 10 ML SYR IV (05:14)
[2018-06-30] MEDS: SLF 3 ML SYR IV ×2 (05:14→12:09)
[2018-06-30] MEDS: ENOXAPARIN 40 MG/0.4 ML SYRINGE (J1650) SC (08:27)
[2018-06-30] MEDS: DULoxetine 30 MG CAP (CYMBALTA) PO (08:28)
[2018-06-30] MEDS: predniSONE 20 MG TAB PO (08:28)
[2018-06-30] MEDS: OMEPRAZOLE 20 MG CAP PO (08:28)
[2018-06-30] MEDS: BACTRIM 160MG/800MG DS TAB PO (08:34)
[2018-06-30] MEDS: NS 1,000 ML IV (08:50)
[2018-06-30 09:19] LABS: BASO # 0.1 10^3/uL (0.0-0.2); EOS # 0.2 10^3/uL (0.0-0.50); HEMOGLOBIN 10.1 g/dl (12.0-15.5); IMMATURE GRANULOCYTE % 4.6 % (0-3.0); LYMPH # 2.2 10^3/uL (1.5-4.5); LYMPH % 36.1 % (24.0-44.0); MEAN CORPUSCULAR HEMOGLOBIN 28.9 pg (27.0-33.0); MEAN CORPUSCULAR HGB CONC 31.6 g/dl (32.0-36.5); MEAN CORPUSCULAR VOLUME 91.7 fl (80.0-96.0); MONO # 0.6 10^3/uL (0.0-0.8); MONO % 9.8 % (0.0-5.0); NEUTROPHILS # 2.8 10^3/uL (1.8-7.7); NEUTROPHILS % 45.5 % (36.0-66.0); PLATELET COUNT, AUTOMATED 385 10^3/uL (150-450); RED BLOOD COUNT 3.49 10^6/uL (4.00-5.40); RED CELL DISTRIBUTION WIDTH 15.2 % (11.5-14.5); WHITE BLOOD COUNT 6.1 10^3/uL (4.0-10.0)
[2018-06-30 09:39] LABS: ANION GAP 8 MEQ/L (8-16); BLOOD UREA NITROGEN 15 MG/DL (7-18); CALCIUM LEVEL 8.5 MG/DL (8.8-10.2); CARBON DIOXIDE LEVEL 27 MEQ/L (21-32); CHLORIDE LEVEL 108 MEQ/L (98-107); CREATININE FOR GFR 0.75 MG/DL (0.55-1.30); GLOMERULAR FILTRATION RATE > 60.0 (>45); GLUCOSE, FASTING 79 MG/DL (70-100); POTASSIUM SERUM 4.1 MEQ/L (3.5-5.1); SODIUM LEVEL 143 MEQ/L (136-145)
[2018-06-30] MEDS: ACETAMINOPHEN TAB 650MG DOSE (2X325MG) PO (12:25)
== END 2018-06-30 16:45 | disposition home health service (06) | DRG 137 ==
LOC: M RADPRO 12:19 → M PCU 14:29
PROC: 0W9B30Z Drainage of Left Pleural Cavity with Drainage Device, Percutaneous Approach (ICD-10-PCS; 2018-06-27)
PROC: 02HV33Z Insertion of Infusion Device into Superior Vena Cava, Percutaneous Approach (ICD-10-PCS; principal; 2018-06-29)
DX: J86.9 Pyothorax without fistula (principal); M35.3 Polymyalgia rheumatica; M79.7 Fibromyalgia; T38.0X5A Adverse effect of glucocorticoids and synthetic analogues, initial encounter; Z88.0 Allergy status to penicillin; Z88.1 Allergy status to other antibiotic agents; Z87.891 Personal history of nicotine dependence; Z79.52 Long term (current) use of systemic steroids; Z79.891 Long term (current) use of opiate analgesic; Z79.899 Other long term (current) drug therapy

== ENCOUNTER → 2018-07-07 | Outpatient (REF) | payer OTHER ==
[2018-07-07 14:11] LABS: BASO % 0.2 % (0.0-1.0); EOS % 0.2 % (0.0-3.0); HEMATOCRIT 34.8 % (36.0-47.0); HEMOGLOBIN 11.1 g/dl (12.0-15.5); IMMATURE GRANULOCYTE % 0.9 % (0-3.0); LYMPH # 0.4 10^3/uL (1.5-4.5); LYMPH % 6.1 % (24.0-44.0); MEAN CORPUSCULAR HEMOGLOBIN 29.1 pg (27.0-33.0); MEAN CORPUSCULAR HGB CONC 31.9 g/dl (32.0-36.5); MEAN CORPUSCULAR VOLUME 91.1 fl (80.0-96.0); MONO # 0.1 10^3/uL (0.0-0.8); NEUTROPHILS # 5.8 10^3/uL (1.8-7.7); NEUTROPHILS % 90.6 % (36.0-66.0); PLATELET COUNT, AUTOMATED 362 10^3/uL (150-450); RED BLOOD COUNT 3.82 10^6/uL (4.00-5.40); RED CELL DISTRIBUTION WIDTH 15.8 % (11.5-14.5); WHITE BLOOD COUNT 6.4 10^3/uL (4.0-10.0)
[2018-07-07 14:29] LABS: ALBUMIN 3.3 GM/DL (3.2-5.2); ALBUMIN/GLOBULIN RATIO 0.97 (1.00-1.93); ALKALINE PHOSPHATASE 59 U/L (45-117); ALT/SGPT 23 U/L (12-78); ANION GAP 6 MEQ/L (8-16); AST/SGOT 19 U/L (7-37); BILIRUBIN,TOTAL 0.3 MG/DL (0.2-1.0); BLOOD UREA NITROGEN 20 MG/DL (7-18); C REACTIVE PROTEIN QUANTITATIV < 0.30 MG/DL (0.00-0.30); CALCIUM LEVEL 8.5 MG/DL (8.8-10.2); CARBON DIOXIDE LEVEL 28 MEQ/L (21-32); CHLORIDE LEVEL 105 MEQ/L (98-107); CREATININE FOR GFR 1.14 MG/DL (0.55-1.30); GLOMERULAR FILTRATION RATE 51.1 (>45); GLUCOSE, FASTING 112 MG/DL (70-100); POTASSIUM SERUM 4.7 MEQ/L (3.5-5.1); SODIUM LEVEL 139 MEQ/L (136-145); TOTAL PROTEIN 6.7 GM/DL (6.4-8.2)
[2018-07-07 14:47] LABS: ERYTHROCYTE SEDIMENTATION RATE 45 mm/hr (0-30)
== END ==
LOC: M SHH 13:55
DX: J18.1 Lobar pneumonia, unspecified organism (principal)

== ENCOUNTER → 2018-07-28 | Outpatient (REF) | payer OTHER ==
[2018-07-28 13:02] LABS: BASO % 0.6 % (0.0-1.0); EOS # 0.1 10^3/uL (0.0-0.50); EOS % 1.1 % (0.0-3.0); HEMATOCRIT 41.5 % (36.0-47.0); HEMOGLOBIN 13.3 g/dl (12.0-15.5); IMMATURE GRANULOCYTE % 1.2 % (0-3.0); LYMPH # 1.2 10^3/uL (1.5-4.5); LYMPH % 17.7 % (24.0-44.0); MEAN CORPUSCULAR HEMOGLOBIN 29.7 pg (27.0-33.0); MEAN CORPUSCULAR VOLUME 92.6 fl (80.0-96.0); MONO # 0.6 10^3/uL (0.0-0.8); MONO % 8.7 % (0.0-5.0); NEUTROPHILS # 4.7 10^3/uL (1.8-7.7); NEUTROPHILS % 70.7 % (36.0-66.0); PLATELET COUNT, AUTOMATED 307 10^3/uL (150-450); RED BLOOD COUNT 4.48 10^6/uL (4.00-5.40); RED CELL DISTRIBUTION WIDTH 15.1 % (11.5-14.5); WHITE BLOOD COUNT 6.7 10^3/uL (4.0-10.0)
[2018-07-28 13:42] LABS: C REACTIVE PROTEIN QUANTITATIV < 0.30 MG/DL (0.00-0.30)
[2018-07-28 14:09] LABS: ERYTHROCYTE SEDIMENTATION RATE 12 mm/hr (0-30)
== END ==
LOC: M SFHCPLAZ 10:32
DX: J18.1 Lobar pneumonia, unspecified organism (principal)

== ENCOUNTER → 2018-08-19 | Outpatient (CLI) | payer OTHER ==
[2018-08-19 12:43] LABS: C REACTIVE PROTEIN QUANTITATIV < 0.30 MG/DL (0.00-0.30)
[2018-08-19 12:50] LABS: ERYTHROCYTE SEDIMENTATION RATE 2 mm/hr (0-30)
== END ==
LOC: M LAB 11:44
DX: M31.6 Other giant cell arteritis (principal)
CPT/HCPCS: 86140

== ENCOUNTER → 2018-09-19 | Outpatient (CLI) | payer OTHER ==
[2018-09-19 12:18] LABS: ERYTHROCYTE SEDIMENTATION RATE 9 mm/hr (0-30)
[2018-09-19 12:19] LABS: C REACTIVE PROTEIN QUANTITATIV < 0.30 MG/DL (0.00-0.30)
== END ==
LOC: M LAB 10:51
DX: M31.6 Other giant cell arteritis (principal)
CPT/HCPCS: 86140

== ENCOUNTER → 2018-10-17 | Outpatient (REF) | payer MEDICAID ==
[~2018-10-17] MED LIST changes: +B COTAB3 PO; +BACITAB PO; +BACT800T5 PO; +BENA25CA4 PO; +CALC1TAB30 PO; +CLAR10CA3 PO; +CLON0.5T8 PO; +CLON1TAB8 PO; +DULO1CAP3 PO; +FERR1TAB8 PO; -ISOVUE-370 76% 100ML VIAL (Q9967) As Ordered; +LEVO750T13 PO; +MAGN400T PO; +MIRA3350 PO; +NAPR250T82 PO; +PRED10TA2 PO; +PRED20TA PO; +RIZA10TA2 PO; +SUMA4INJ3 SC; +TRAM50TA2 PO; +ZOFR4TAB14 PO
[2018-10-17 18:41] LABS: FREE T4 0.83 NG/DL (0.76-1.46); THYROID STIMULATING HORMONE 0.496 uIU/ML (0.358-3.740)
[2018-10-21 00:06] LABS: ACETYLCHOLINE RCPTOR BINDING A < 0.03 nmol/L (0.00-0.24)
== END ==
LOC: M LAB REF 17:05
PROVIDERS: ATTEND Internal Medicine Pulmonary Disease
DX: J90 Pleural effusion, not elsewhere classified (principal)

== ENCOUNTER → 2018-10-25 | Outpatient (CLI) | payer MEDICAID | LOC: M LAB 15:05 | PROVIDERS: ATTEND Internal Medicine Rheumatology | DX: M31.6 Other giant cell arteritis (principal) ==

== ENCOUNTER → 2018-11-22 | Outpatient (CLI) | payer OTHER, MEDICAID ==
--- NOTE | 2018-12-07 00:43 | ECWPNPC ---
PATIENT NAME: MILLY DIAS : 1955 GENDER: FEMALE VISIT DATE: 11/22/2018 DISCHARGE DATE: 11/22/18 1458 VISIT LOCKED DATE TIME: PHYSICIAN: MIK DALLAS RESOURCE: MIK DALLAS REASON FOR APPOINTMENT 1. SW PT HISTORY OF PRESENT ILLNESS HISTORY OF PRESENT ILLNESS: HERE FOR F/U OF CHRONIC NECK AND HEADACHE PAIN.LAST VISIT WAS IN FEBRUARY.HAS BEEN EXTREMELY ILL WITH PNEUMONIA/EMPYEMA.HISTORY OF FIBROMYALGIA.BEING FOLLOWED BY RHEUMATOLOGY FOR ?AUTOIMMUNE PROCESS.RATING PAIN VAS 6/10. PAIN THE PATIENT DESCRIBES THE PAIN... FALL RISK SCREENING: SCREENING :NO FALLS IN THE PAST YEAR CURRENT MEDICATIONS TAKING TRAMADOL HCL 50 MG TABLET 1 TABLET NEEDED ORALLY (ISTOP:[id number]) DAILY; MDD=1 TAKING VITAMIN C 500 MG CAPSULE ORALLY TAKING ZOFRAN 4 MG TABLET 1 ORALLY NEEDED TAKING BETAMETHASONE DIPROPIONATE AUG 0.05 % GEL 1 APPLICATION TO AFFECTED AREA IN MOUTH EXTERNALLY BID TAKING PRILOSEC OTC 20 MG TABLET DELAYED RELEASE 1 TABLET ORALLY DAILY TAKING CALCIUM & MAGNESIUM CARBONATES WITH VITAMIN K AND D ORAL 3 CAPLETS DAILY TAKING CLARITIN 10 MG TABLET 1 TABLET ORALLY ONCE A DAY TAKING BENADRYL ALLERGY 25 MG TABLET 1 TABLET ORALLY DAILY TAKING VITAMIN D (CHOLECALCIFEROL) 1000 UNIT CAPSULE 1 CAPSULE ORALLY ONCE A DAY TAKING FOSAMAX 70 MG TABLET 1 TABLET ORALLY ONCE A WEEK, NOTES: DR. DESAI TAKING CYMBALTA 60 MG CAPSULE DELAYED RELEASE PARTICLES 2 CAPSULE ORALLY ONCE A DAY TAKING KLONOPIN 1 MG TABLET 1 TABLET ORALLY BEFORE BEDTIME (ISTOP REF___#: [id number]), NOTES: BH TAKING SUMATRIPTAN SUCCINATE 6 MG/0.5ML KIT SUBCUTANEOUS , NOTES: NEURO TAKING MIRALAX - POWDER 1 CAPFUL DISSOLVED IN4-8 OZ LIQUID NEEDED ORALLY ONCE A DAY TAKING PREDNISONE 5 MG TABLET 1 TABLET ALONG WITH 1MG TAB, TOTAL 6MG FOR 14 DAYS, THEN 1TAB DAILY ORALLY ONCE A DAY TAKING RIZATRIPTAN BENZOATE 10 MG TABLET 1 TABLET NEEDED ONE TIME ORALLY ONCE A DAY, NOTES: NEURO NOT-TAKING NAPROXEN 500 MG TABLET 1 TABLET WITH FOOD OR MILK NEEDED ORALLY EVERY 12 HRS NOT-TAKING TRAMADOL HCL ER 25 MG TABLET EXTENDED RELEASE 24 HOUR 1 TABLET ORALLY ONCE A DAY DISCONTINUED PREDNISONE 1 MG TABLET 9 TABS DAILY FOR 2 WEEKS, THEN 8 TABS DAILY ORALLY ONCE A DAY, NOTES: DOWN TO 7 PER WEEK DISCONTINUED PREDNISONE 1 MG TABLET 1 TABLET ALONG WITH 5MG TABLET TO MAKE 6MG TOTAL ORALLY ONCE A DAY MEDICATION LIST REVIEWED AND RECONCILED WITH THE PATIENT PAST MEDICAL HISTORY FIBROMYALGIA OSTEOPOROSIS - PREVIOUSLY ON PROLIA INJECTIONS/NOW ON FOSAMAX (STARTED 05/2018) ABDOMINAL MIGRAINES PER NEUROLOGY DEPRESSION ANXIETY HYPERLIPIDEMIA ASCVD RISK 4.5% ON 12/2017 COLONOSCOPY ([place]) 2015 - REPEAT 5 YRS LEFT LUNG PLEURAL MASS - EMPYEMA CAVITARY OPACTIY IN RLL - QUANTIFERON GOLD TEST NEGATIVE 04/27 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 [place] IN 50S, DIAGNOSED WITH HYPERTENSION, HEART DISEASE, CANCER MOTHER: ALIVE 87 YRS, DIAGNOSED WITH HYPERTENSION 2 BROTHER(S) , 2 SISTER(S) . 2 SON(S) , 1 DAUGHTER(S) - HEALTHY. SISTER- CANCER-RECTAL (DX'D AGE 48) AND LIVER CANCER-56YO CHILDREN ARE HEALHY. SOCIAL HISTORY GENERAL: TOBACCO USE ARE YOU A:FORMER SMOKER HOW LONG HAS IT BEEN SINCE YOU LAST SMOKED?> 10 YEARS ALCOHOL SCREENING DID YOU HAVE A DRINK CONTAINING ALCOHOL IN THE PAST YEAR?YES HOW OFTEN DID YOU HAVE SIX OR MORE DRINKS ON ONE OCCASION IN THE PAST YEAR?NEVER (0 POINTS) HOW MANY DRINKS DID YOU HAVE ON A TYPICAL DAY WHEN YOU WERE DRINKING IN THE PAST YEAR?1 OR 2 (0 POINTS) HOW OFTEN DID YOU HAVE A DRINK CONTAINING ALCOHOL IN THE PAST YEAR?MONTHLY OR LESS (1 POINT) POINTS1 INTERPRETATIONNEGATIVE RECREATIONAL DRUG USE DRUG USE?NO CAFFEINE CAFFEINE USE?YES HOW OFTEN AND HOW MUCH? 2 CUPS OF COFFEE A DAY SEXUAL HX HAD SEX IN THE LAST 12 MONTHS (VAGINAL, ORAL, OR ANAL)?YES WITHWOMEN ONLY USE PROTECTION?NO HAVE YOU EVER HAD AN STD?NO HIV / HEP-C SCREENING HIV TEST OFFERED TO PATIENT:YES DATE OFFERED:11/30/2017 TEST ACCEPTED:NO HEP-C TEST OFFERED TO PATIENT:YES DATE OFFERED:11/30/2017 REASON:PATIENT DECLINED TEST ACCEPTED:NO REASON:OTHER (DOCUMENT IN NOTE) PT ALREADY TESTED ORTHODOX [id number] ORTHODOXY LANGUAGE LANGUAGES SPOKEN:MACEDONIAN EDUCATION LEVEL OF EDUCATION:NOT FINISHED COLLEGE LEARNING BARRIERS / SPECIAL NEEDS CHANGE FROM LAST VISIT?NO BARRIERS TO LEARNING?NO HEARING IMPAIRED?NO VISION IMPAIRED?YES :CORRECTIVE LENSES DOMESTIC VIOLENCE DO YOU FEEL SAFE IN YOUR ENVIRONMENT?YES OCCUPATION: RETIRED, CHILDCARE ON THE SIDE. . DIET: DAIRY AND GLUTEN FREE. EXERCISE: WALKS. MARITAL STATUS: .. OTHERS AT HOME: NONE. PAIN CLINIC PFS, CLERGY, PUBLIC HEALTH REFERRALS HAS THE PATIENT BEEN EDUCATED REGARDING HIS/HER PLAN OF CARE?YES HAS THE PATIENT BEEN EDUCATED REGARDING PAIN, THE RISK FOR PAIN, THE IMPORTANCE OF EFFECTIVE PAIN MANAGEMENT, AND THE PAIN ASSESSMENT PROCESS?YES ADVANCE DIRECTIVE ADVANCE DIRECTIVE DISCUSSED WITH PATIENT:YES DELINED HOSPITALIZATION/MAJOR DIAGNOSTIC PROCEDURE CHILD AND ABOVE WITH SURGERIES TONSILLECTOMY AGE 4 CELLULITIS FROM CAROL NAIL AGE 6 BILASTERAL PNEUMONIA WITH LEFT SIDED PLEURAL EFFUSION 05/05/18-05/11/18 PNEUMONA SAC DRAINED / PNEUMONA 06/27/18-06/30/18 REVIEW OF SYSTEMS REVIEWED BY: PROVIDER: MIK TREJO . CONSTITUTIONAL: ANY CHANGE IN YOUR MEDICAL CONDITION? YES, PNEUMONIA RESOLVED, . CHILLS NO . FEVER NO . INFECTION: DO YOU HAVE NEW INFECTIONS? YES, HOSPITALIZED 04/2018 AND 05/2018 IV HYDRATION AND CHEST DRAIN . DO YOU HAVE HISTORY OF MRSA? NO . MUSCULOSKELETAL: ANY NEW PATTERNS OF PAIN OR NUMBNESS? NO . GASTROENTEROLOGY: ANY NEW CHANGE IN BOWEL CONTROL? NO . GENITOURINARY: ANY NEW CHANGE IN BLADDER CONTROL? NO . IS THERE A CHANCE YOU COULD BE ? NO . HEMATOLOGY/LYMPH: DO YOU TAKE ANY BLOOD THINNERS? (FOR EXAMPLE- COUMADIN, PLAVIX, AGGRENOX, PLATEL, PRADAXA, OR XARELTO) NO . WHEN WAS YOUR LAST DOSE? DATE: TIME: . NEUROLOGY: HAVE YOU FALLEN IN THE PAST 12 MONTHS? NO . ANY NEW EXTREMITY NUMBNESS OR WEAKNESS? NO . CARDIOLOGY: DO YOU HAVE A PACEMAKER OR DEFIBRILLATOR? NO . RESPIRATORY: HAVE YOU BEEN SICK IN THE PAST WEEK? NO . FEVER NO . FLU LIKE SYMPTOMS? NO . COUGH NO . INTEGUMENTARY: DO YOU HAVE ANY RASHES OR OPEN SORES? NO . ALLERGIC/IMMUNO: ARE YOU ALLERGIC TO IV DYE? NO . ANY NEW ALLERGIES? NO . PSYCHIATRIC: DO YOU HAVE THOUGHTS OF HURTING YOURSELF OR SOMEONE ELSE? NO . ARE YOU ABUSED, NEGLECTED, OR IN AN UNSAFE ENVIRONMENT? NO . ENDOCRINOLOGY: ARE YOU DIABETIC? NO . OTHER: DO YOU NEED ANY PRESCRIPTIONS? YES, TRAMADOL . IF YES, PLEASE LIST: ____ . ANY NEW PROBLEMS WITH YOUR MEDICATIONS? NO . WHEN DID YOU LAST EAT? ____ . WHEN DID YOU LAST DRINK? ____ . WHAT DID YOU LAST DRINK? ____ . NAME OF PERSON DRIVING YOU HOME? ____ . DO YOU HAVE ANY OTHER QUESTIONS OR CONCERNS NO . VITAL SIGNS WT 126.8 LBS, HT 64 IN, BMI 21.76 INDEX, BP 107/67 MM HG, HR 86 /MIN, RR 18 /MIN, TEMP 97.1 F, OXYGEN SAT % 95%, NA INITIALS AW 1352, REVIEWED BY: TUTU. EXAMINATION GENERAL EXAMINATION: GENERAL APPEARANCE:AWAKE,ALERT ,PLEAASANT . PSYCHAFFECT NORMAL . LUNGS:LUNG GANDHI ARE CLEAR TO AUSCULTATION BILATERALLY. GOOD MOVEMENT OF AIR . HEART:S1, S2 IN A REGULAR RATE AND RHYTHM. NO SIGNIFICANT MURMURS, RUBS OR GALLOPS NOTED . ASSESSMENTS INFLAMMATORY ARTHROPATHY - M19.90 (PRIMARY) TREATMENT INFLAMMATORY ARTHROPATHY START TRAMADOL HCL TABLET, 50 MG, 1 TO 2 TAB, ORALLY, EVERY 6 HRS MDD4, 30 DAY(S), 100, REFILLS 2 NOTES: RISKS AND BENEFITS OF NARCOTIC/OPIOD MEDICATIONS WERE REVIEWED WITH PATIENT - THIS INCLUDES BUT IS NOT LIMITED TO RISK OF DEPENDANCE/DEVELOPMENT OF ADDICTION, MOOD DISTURBANCE AND DEPRESSION, OSTEOPOROSIS, HORMONAL AND LABIDAL CHANGES, RESPIRATORY DEPRESSION AND . PATIENT IS ADVISED NOT TO DRIVE OR DRINK ALCOHOL WHILE ON THESE MEDICATIONS. PROCEDURE CODES FA211 ESTABILISHED PATIENT [facility] CHARGE DISPOSITION & COMMUNICATION FOLLOW UP 2 MONTHS ELECTRONICALLY SIGNED BY NEIL CACERES ON 12/06/2018 AT 05:17 PM EST DISCLAIMER : THIS IS A VISIT SUMMARY EXTRACTED FROM THE [employer] CHART. IT IS NOT A COPY OF THE [email or web address] PROGRESS NOTE. [place]
== END ==
LOC: M PAIN 13:45
PROVIDERS: ATTEND Nurse Practitioner Family
DX: M54.2 Cervicalgia (principal); G89.29 Other chronic pain; G43.019 Migraine without aura, intractable, without status migrainosus; M79.7 Fibromyalgia; M81.0 Age-related osteoporosis without current pathological fracture; F32.9 Major depressive disorder, single episode, unspecified; F41.9 Anxiety disorder, unspecified; Z79.899 Other long term (current) drug therapy; Z88.0 Allergy status to penicillin; Z88.8 Allergy status to other drugs, medicaments and biological substances; Z91.011 Allergy to milk products; Z87.891 Personal history of nicotine dependence

== ENCOUNTER → 2018-12-13 | Outpatient (REF) | payer OTHER, MEDICAID | LOC: M SFHCPLAZ 11:36 | PROVIDERS: ATTEND Internal Medicine Rheumatology | DX: M31.6 Other giant cell arteritis (principal) ==

== ENCOUNTER → 2019-01-03 | Outpatient (CLI) | payer OTHER, MEDICAID | LOC: M LAB 11:08 | PROVIDERS: ATTEND Internal Medicine Rheumatology | DX: M31.6 Other giant cell arteritis (principal) ==

== ENCOUNTER → 2019-01-03 | Outpatient (CLI) | payer OTHER, MEDICAID ==
--- NOTE | 2019-01-05 01:02 | ECWPNPC ---
PATIENT NAME: MILLY DIAS : 1955 GENDER: FEMALE VISIT DATE: 01/03/2019 DISCHARGE DATE: 01/03/19 1049 VISIT LOCKED DATE TIME: PHYSICIAN: VANESSA NG RESOURCE: VANESSA NG REASON FOR APPOINTMENT 1. SW PT TRANSFER HISTORY OF PRESENT ILLNESS HISTORY OF PRESENT ILLNESS: PAIN THE PATIENT DESCRIBES THE PAINDURING THE LAST MONTH SEVERITY - PAIN SCORE OF3/10 LOCATIONSNECK, CERVICAL, UPPER BACK QUALITYACHING DURATIONSTEADY 63 YR OLD FEMALE WITH FIBROMYALGIA AND CERVCAL PAIN, HERE FOR F/U. SHE DOES NOT REPORT ANY INCREASE IN HER PAIN TODAY. SHE DENIES RADICULOPATHY, FEVER, CHILLS AND WEIGHT LOSS. FALL RISK SCREENING: SCREENING :NO FALLS REPORTED IN THE LAST YEAR CURRENT MEDICATIONS TAKING VITAMIN C 500 MG CAPSULE ORALLY TAKING BETAMETHASONE DIPROPIONATE AUG 0.05 % GEL 1 APPLICATION TO AFFECTED AREA IN MOUTH EXTERNALLY BID TAKING PRILOSEC OTC 20 MG TABLET DELAYED RELEASE 1 TABLET ORALLY DAILY, NOTES: NEEDED TAKING CALCIUM & MAGNESIUM CARBONATES WITH VITAMIN K AND D ORAL 3 CAPLETS DAILY TAKING CLARITIN 10 MG TABLET 1 TABLET ORALLY ONCE A DAY TAKING BENADRYL ALLERGY 25 MG TABLET 1 TABLET ORALLY DAILY TAKING VITAMIN D (CHOLECALCIFEROL) 1000 UNIT CAPSULE 1 CAPSULE ORALLY ONCE A DAY TAKING FOSAMAX 70 MG TABLET 1 TABLET ORALLY ONCE A WEEK, NOTES: DR. DESAI TAKING CYMBALTA 60 MG CAPSULE DELAYED RELEASE PARTICLES 2 CAPSULE ORALLY ONCE A DAY TAKING KLONOPIN 1 MG TABLET 1 TABLET ORALLY BEFORE BEDTIME (ISTOP REF #: [id number]), NOTES: BH TAKING MIRALAX - POWDER 1 CAPFUL DISSOLVED IN4-8 OZ LIQUID NEEDED ORALLY ONCE A DAY TAKING RIZATRIPTAN BENZOATE 10 MG TABLET 1 TABLET NEEDED ONE TIME ORALLY ONCE A DAY, NOTES: NEURO TAKING TRAMADOL HCL 50 MG TABLET 1 TO 2 TAB ORALLY EVERY 6 HRS MDD4 TAKING SUMATRIPTAN SUCCINATE 6 MG/0.5ML SOLUTION AUTO-INJECTOR 0.5 ML NEEDED SUBCUTANEOUS ONCE DAILY; MAY REPEAT DOSE X 1 AFTER 1 HOUR IF SYPTOMS PERSIST TAKING PREDNISONE 1 MG TABLET 4 TABLETS FOR TOTAL OF 4MG DAILY ORALLY ONCE A DAY TAKING VOLTAREN 1 % GEL 2G, MAX 8G IN 24 HOURS TRANSDERMAL THREE TIMES DAILY NEEDED, NOTES: HAS NOT PICKED UP YET TAKING MAY USE CBD OIL , NOTES: TAKES TWICE A DAY NOT-TAKING ZOFRAN 4 MG TABLET 1 ORALLY NEEDED NOT-TAKING NAPROXEN 500 MG TABLET 1 TABLET WITH FOOD OR MILK NEEDED ORALLY EVERY 12 HRS NOT-TAKING TRAMADOL HCL ER 25 MG TABLET EXTENDED RELEASE 24 HOUR 1 TABLET ORALLY ONCE A DAY DISCONTINUED PREDNISONE 5 MG TABLET 1 TABLET ALONG WITH 1MG TAB, TOTAL 6MG FOR 14 DAYS, THEN 1TAB DAILY ORALLY ONCE A DAY MEDICATION LIST REVIEWED AND RECONCILED WITH THE PATIENT PAST MEDICAL HISTORY FIBROMYALGIA OSTEOPOROSIS - PREVIOUSLY ON PROLIA INJECTIONS/NOW ON FOSAMAX (STARTED 05/2018) ABDOMINAL MIGRAINES PER NEUROLOGY DEPRESSION ANXIETY HYPERLIPIDEMIA ASCVD RISK 4.5% ON 12/2017 COLONOSCOPY ([place]) 2015 - REPEAT 5 YRS LEFT LUNG PLEURAL MASS - EMPYEMA CAVITARY OPACTIY IN RLL - QUANTIFERON GOLD TEST NEGATIVE 04/27 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 [place] IN 50S, DIAGNOSED WITH CANCER, HYPERTENSION, HEART DISEASE MOTHER: ALIVE 87 YRS, HYPERTENSION 2 BROTHER(S) , 2 SISTER(S) . 2 SON(S) , 1 DAUGHTER(S) - HEALTHY. SISTER- CANCER-RECTAL (DX\\\'D AGE 48) AND LIVER CANCER-56YO \\NCHILDREN ARE HEALHY. SOCIAL HISTORY GENERAL: TOBACCO USE ARE YOU A:FORMER SMOKER HOW LONG HAS IT BEEN SINCE YOU LAST SMOKED?> 10 YEARS LATEX QUESTIONNAIRE LATEX ALLERGY : HAVE YOU EVER DEVELOPED ANY TYPE OF REACTION AFTER HANDLING LATEX PRODUCTS SUCH RUBBER GLOVES, CONDOMS, DIAPHRAGMS, BALLOONS, SOCKS, OR UNDERWEAR?NO LATEX ALLERGY : HAVE YOU EVER DEVELOPED ANY TYPE OF REACTION DURING OR AFTER DENTAL APPOINTMENT, VAGINAL/RECTAL EXAMINATION, SURGICAL PROCEDURE, OR ANY OTHER EXPOSURE?NO DATE ASKED : 01/03/2019 LATEX RISK : HAVE YOU EVER HAD ANY DIFFICULTY BREATHING OR HIVES AFTER EATING OR HANDLING ANY FRUITS, OR VEGETABLES; SUCH KIWI, BANANAS, STONE FRUITS, OR CHESTNUTSNO LATEX RISK : DO YOU HAVE A PREVIOUS PERSONAL HISTORY OF MORE THAN NINE SURGERIES, SPINA BIFIDA, OR REPEATED CATHERTIZATIONS? NO LATEX RISK : ARE YOU FREQUENTLY EXPOSED TO LATEX PRODUCTS IN YOUR OCCUPATION?NO ALCOHOL SCREENING DID YOU HAVE A DRINK CONTAINING ALCOHOL IN THE PAST YEAR?YES HOW OFTEN DID YOU HAVE SIX OR MORE DRINKS ON ONE OCCASION IN THE PAST YEAR?NEVER (0 POINTS) HOW MANY DRINKS DID YOU HAVE ON A TYPICAL DAY WHEN YOU WERE DRINKING IN THE PAST YEAR?1 OR 2 (0 POINTS) HOW OFTEN DID YOU HAVE A DRINK CONTAINING ALCOHOL IN THE PAST YEAR?MONTHLY OR LESS (1 POINT) POINTS1 INTERPRETATIONNEGATIVE RECREATIONAL DRUG USE DRUG USE?NO CAFFEINE CAFFEINE USE?YES HOW OFTEN AND HOW MUCH? 2 CUPS OF COFFEE A DAY SEXUAL HX HAD SEX IN THE LAST 12 MONTHS (VAGINAL, ORAL, OR ANAL)?YES WITHWOMEN ONLY USE PROTECTION?NO HAVE YOU EVER HAD AN STD?NO HIV / HEP-C SCREENING HIV TEST OFFERED TO PATIENT:YES DATE OFFERED:11/30/2017 TEST ACCEPTED:NO HEP-C TEST OFFERED TO PATIENT:YES DATE OFFERED:11/30/2017 REASON:PATIENT DECLINED TEST ACCEPTED:NO REASON:OTHER (DOCUMENT IN NOTE) PT ALREADY TESTED [id number] [employer] LANGUAGE LANGUAGES SPOKEN:VIETNAMESE EDUCATION LEVEL OF EDUCATION:NOT FINISHED COLLEGE LEARNING BARRIERS / SPECIAL NEEDS CHANGE FROM LAST VISIT?NO BARRIERS TO LEARNING?NO HEARING IMPAIRED?NO VISION IMPAIRED?YES :CORRECTIVE LENSES DOMESTIC VIOLENCE DO YOU FEEL SAFE IN YOUR ENVIRONMENT?YES OCCUPATION: RETIRED, CHILDCARE ON THE SIDE. . DIET: DAIRY AND GLUTEN FREE. EXERCISE: WALKS. MARITAL STATUS: .. OTHERS AT HOME: NONE. PAIN CLINIC PFS, CLERGY, PUBLIC HEALTH REFERRALS HAS THE PATIENT BEEN EDUCATED REGARDING HIS/HER PLAN OF CARE?YES HAS THE PATIENT BEEN EDUCATED REGARDING PAIN, THE RISK FOR PAIN, THE IMPORTANCE OF EFFECTIVE PAIN MANAGEMENT, AND THE PAIN ASSESSMENT PROCESS?YES ADVANCE DIRECTIVE ADVANCE DIRECTIVE DISCUSSED WITH PATIENT:YES PT DOES NOT HAVE HCP. PT STATES SHE HAS INFORMATION AT HOME AND DECLINES ASSISTANCE AT THIS TIME. 01/03/19 REVIEWED WITH PT 01/03/19 01 BV. HOSPITALIZATION/MAJOR DIAGNOSTIC PROCEDURE CHILD AND ABOVE WITH SURGERIES TONSILLECTOMY AGE 4 CELLULITIS FROM CAROL NAIL AGE 6 BILASTERAL PNEUMONIA WITH LEFT SIDED PLEURAL EFFUSION 05/05/18-05/11/18 PNEUMONA SAC DRAINED / PNEUMONA 06/27/18-06/30/18 REVIEW OF SYSTEMS REVIEWED BY: PROVIDER: RAYMUNDO . CONSTITUTIONAL: ANY CHANGE IN YOUR MEDICAL CONDITION? NO . CHILLS NO . FEVER NO . INFECTION: DO YOU HAVE NEW INFECTIONS? YES, PT COMPLAINS OF RECENT FLARE UP IN MOUTH SORES. STATES SHE HAS A BETAMETHOSONE GEL FOR THIS AND HER PRIMARY DOCTOR IS FOLLOWING HER FOR THIS. . DO YOU HAVE HISTORY OF MRSA? NO . MUSCULOSKELETAL: ANY NEW PATTERNS OF PAIN OR NUMBNESS? NO . GASTROENTEROLOGY: ANY NEW CHANGE IN BOWEL CONTROL? NO . GENITOURINARY: ANY NEW CHANGE IN BLADDER CONTROL? NO . IS THERE A CHANCE YOU COULD BE ? NO . HEMATOLOGY/LYMPH: DO YOU TAKE ANY BLOOD THINNERS? (FOR EXAMPLE- COUMADIN, PLAVIX, AGGRENOX, PLATEL, PRADAXA, OR XARELTO) NO . WHEN WAS YOUR LAST DOSE? DATE: TIME: . NEUROLOGY: HAVE YOU FALLEN IN THE PAST 12 MONTHS? NO . ANY NEW EXTREMITY NUMBNESS OR WEAKNESS? NO . CARDIOLOGY: DO YOU HAVE A PACEMAKER OR DEFIBRILLATOR? NO . RESPIRATORY: HAVE YOU BEEN SICK IN THE PAST WEEK? NO . FEVER NO . FLU LIKE SYMPTOMS? NO . COUGH NO . INTEGUMENTARY: DO YOU HAVE ANY RASHES OR OPEN SORES? NO . ALLERGIC/IMMUNO: ARE YOU ALLERGIC TO IV DYE? NO . ANY NEW ALLERGIES? NO . PSYCHIATRIC: DO YOU HAVE THOUGHTS OF HURTING YOURSELF OR SOMEONE ELSE? NO . ARE YOU ABUSED, NEGLECTED, OR IN AN UNSAFE ENVIRONMENT? NO . ENDOCRINOLOGY: ARE YOU DIABETIC? NO . OTHER: DO YOU NEED ANY PRESCRIPTIONS? NO . IF YES, PLEASE LIST: ____ . ANY NEW PROBLEMS WITH YOUR MEDICATIONS? NO . WHEN DID YOU LAST EAT? ____ . WHEN DID YOU LAST DRINK? ____ . WHAT DID YOU LAST DRINK? ____ . NAME OF PERSON DRIVING YOU HOME? ____ . DO YOU HAVE ANY OTHER QUESTIONS OR CONCERNS NO . VITAL SIGNS WT 125.6 LBS, HT 64 IN, BMI 21.56 INDEX, BP 137/63 MM HG, HR 79 /MIN, RR 18 /MIN, TEMP 97.2 F, OXYGEN SAT % 100%, NA INITIALS SC 09:41, REVIEWED BY: BV. EXAMINATION GENERAL EXAMINATION: GENERAL APPEARANCE:NO ACUTE DISTRESS, WELL NOURISHED AND HYDRATED. PSYCHAPPROPRIATE MOOD AND AFFECT . NECK: NORMAL RANGE OF MOTION OF CERVICAL SPINE. LUNGS:CLEAR TO AUSCULTATION BILATERALLY, NO WHEEZES, RHONCHI, RALES. HEART:NO MURMURS, REGULAR RATE AND RHYTHM. ASSESSMENTS MYALGIA - M79.1 (PRIMARY) FIBROMYALGIA - M79.7 DEPRESSION, UNSPECIFIED DEPRESSION TYPE - F32.9 TREATMENT MYALGIA CLINICAL NOTES: CONTINUE WITH CURRENT MEDICATION.,, ISTOP REGISTRY REVIEWED AND DEMONSTRATES COMPLLIANCE. (REF #[id number] ) BRINGS IN MEDICATIONS WHICH IS APPROPRIATE FOR WHAT WAS DISPENSED. RECENT URINE TOXICOLOGY REVIEWED. NO UNAUTHORIZED MEDICATIONS. NO ILLICIT SUBSTANCES AND PRESCRIBED MEDICATIONS WERE PRESENT. , [facility] NARCOTIC AGREEMENT WAS REVIEWED AND SIGNED TODAY BY THE PATIENT. SEE ATTACHED DOCUMENT FOR FULL DETAILS; SPECIFIC ISSUES WERE REVIEWED: 1) KEEP PAIN MEDS IN THEIR ORIGINAL BOTTLES AND ANY WEEKLY PLANNERS ARE TO BE BROUGHT TO THE PAIN CENTER AT EVERY VISIT. 2) THE PATIENT IS NOT TO INCREASE DOSING OR TIMING OF THEIR PAIN MEDICATION WITHOUT SPECIFIC DIRECTION OF THEIR PAIN CENTERPROVIDER (NOT ER OR OTHER PROVIDERS). 3) ALL PAIN MEDS ARE TO BE KEPT SECURED, IN A LOCKED BOX. 4) NO PAIN MEDS ARE TO BE SHARED WITH ANY OTHER PERSON FOR ANY REASON. 5) NO PAIN MEDS MAY BE TAKEN FROM ANY FRIENDS OR RELATIVES FOR ANY REASON 6) NO MEDS OR SUBSTANCES WHICH ARE NOT LEGAL ARE TO BE USED- NO MARIJUANA, NO COCAINE, AMPHETAMINES, HEROIN, OR OTHERS ARE EVER TO BE USED. 7)URINE TESTING IS DONE TO ACCOUNT FOR MEDS AND SUBSTANCES BEING TAKEN AND WILL BE DONE RANDOMLY., RISKS AND BENEFITS OF NARCOTIC/OPIOD MEDICATIONS WERE REVIEWED WITH PATIENT - THIS INCLUDES BUT IS NOT LIMITED TO RISK OF DEPENDANCE/DEVELOPMENT OF ADDICTION, MOOD DISTURBANCE AND DEPRESSION, OSTEOPOROSIS, HORMONAL AND LABIDAL CHANGES, RESPIRATORY DEPRESSION AND . PATIENT IS ADVISED NOT TO DRIVE OR DRINK ALCOHOL WHILE ON THESE MEDICATIONS. PROCEDURE CODES FA211 ESTABILISHED PATIENT [facility] CHARGE DISPOSITION & COMMUNICATION FOLLOW UP 3 MONTHS ELECTRONICALLY SIGNED BY NEIL MEYER ON 01/04/2019 AT 11:34 AM EDT DISCLAIMER : THIS IS A VISIT SUMMARY EXTRACTED FROM THE [employer] CHART. IT IS NOT A COPY OF THE [employer] PROGRESS NOTE. [place]
== END ==
LOC: M PAIN 09:30
PROVIDERS: ATTEND Nurse Practitioner Family
DX: M79.18 Myalgia, other site (principal); M79.7 Fibromyalgia; F32.9 Major depressive disorder, single episode, unspecified; G43.D0 Abdominal migraine, not intractable; M81.0 Age-related osteoporosis without current pathological fracture; F41.9 Anxiety disorder, unspecified; E78.5 Hyperlipidemia, unspecified; J30.2 Other seasonal allergic rhinitis; E05.90 Thyrotoxicosis, unspecified without thyrotoxic crisis or storm; Z79.891 Long term (current) use of opiate analgesic; Z79.899 Other long term (current) drug therapy; Z88.0 Allergy status to penicillin; Z88.8 Allergy status to other drugs, medicaments and biological substances; Z87.891 Personal history of nicotine dependence

== ENCOUNTER → 2019-01-31 | Outpatient (CLI) | payer OTHER, MEDICAID | LOC: M LAB 08:36 | PROVIDERS: ATTEND Internal Medicine Rheumatology | DX: M31.6 Other giant cell arteritis (principal) ==

== ENCOUNTER → 2019-01-31 | Outpatient (CLI) | payer OTHER, MEDICAID ==
[2019-01-31 09:36] LABS: BASO % 1.3 % (0.0-1.0); EOS # 0.1 10^3/uL (0.0-0.50); EOS % 3.7 % (0.0-3.0); HEMATOCRIT 39.4 % (36.0-47.0); HEMOGLOBIN 12.6 g/dl (12.0-15.5); LYMPH # 1.5 10^3/uL (1.5-4.5); LYMPH % 48.5 % (24.0-44.0); MEAN CORPUSCULAR HEMOGLOBIN 29.9 pg (27.0-33.0); MEAN CORPUSCULAR VOLUME 93.4 fl (80.0-96.0); MONO # 0.4 10^3/uL (0.0-0.8); MONO % 12.7 % (0.0-5.0); NEUTROPHILS % 33.5 % (36.0-66.0); PLATELET COUNT, AUTOMATED 204 10^3/uL (150-450); RED BLOOD COUNT 4.22 10^6/uL (4.00-5.40)
[2019-01-31 10:05] LABS: ALBUMIN 3.9 GM/DL (3.2-5.2); BILIRUBIN,TOTAL 0.3 MG/DL (0.2-1.0); CHOLESTEROL RISK RATIO 2.845 (<5); CREATININE FOR GFR 1.14 MG/DL (0.55-1.30); FREE T4 0.73 NG/DL (0.76-1.46); GLOMERULAR FILTRATION RATE 51.1 (>45); POTASSIUM SERUM 4.3 MEQ/L (3.5-5.1); THYROID STIMULATING HORMONE 1.5 uIU/ML (0.358-3.740); TOTAL PROTEIN 6.1 GM/DL (6.4-8.2)
[2019-01-31 10:30] LABS: TOTAL 25(OH) VITAMIN D 42.3 NG/ML (30.0-100.0)
[2019-02-02 00:06] LABS: Lyme Disease IgG/IgM Antibodie <0.91 ISR (0.00-0.90); Lyme Disease IgM Ab Quantitati <0.80 index (0.00-0.79)
== END ==
LOC: M LAB 08:40
PROVIDERS: ATTEND Physician Assistant
DX: E55.9 Vitamin D deficiency, unspecified (principal); E78.5 Hyperlipidemia, unspecified; F41.9 Anxiety disorder, unspecified; W57.XXXA Bitten or stung by nonvenomous insect and other nonvenomous arthropods, initial encounter

== ENCOUNTER → 2019-03-03 | Outpatient (REF) | payer OTHER | LOC: M LABDRAWP 13:09 | PROVIDERS: ATTEND Psychiatry & Neurology Neurology | DX: M79.10 Myalgia, unspecified site (principal) ==

== ENCOUNTER → 2019-03-03 | Outpatient (REF) | payer OTHER ==
[2019-03-03 12:02] LABS: BASO % 1.5 % (0.0-1.0); EOS # 0.1 10^3/uL (0.0-0.50); HEMATOCRIT 40.7 % (36.0-47.0); HEMOGLOBIN 13.2 g/dl (12.0-15.5); LYMPH # 0.9 10^3/uL (1.5-4.5); LYMPH % 33.5 % (24.0-44.0); MEAN CORPUSCULAR HEMOGLOBIN 30.8 pg (27.0-33.0); MEAN CORPUSCULAR HGB CONC 32.4 g/dl (32.0-36.5); MEAN CORPUSCULAR VOLUME 94.9 fl (80.0-96.0); MONO # 0.4 10^3/uL (0.0-0.8); MONO % 13.2 % (0.0-5.0); NEUTROPHILS # 1.3 10^3/uL (1.8-7.7); NEUTROPHILS % 47.8 % (36.0-66.0); PLATELET COUNT, AUTOMATED 211 10^3/uL (150-450); RED BLOOD COUNT 4.29 10^6/uL (4.00-5.40); WHITE BLOOD COUNT 2.7 10^3/uL (4.0-10.0)
[2019-03-03 12:32] LABS: ERYTHROCYTE SEDIMENTATION RATE 17 mm/hr (0-30)
[2019-03-03 13:31] LABS: C REACTIVE PROTEIN QUANTITATIV < 0.30 MG/DL (0.00-0.30)
[2019-03-03 14:22] LABS: HIV 1&2 SCREEN CENTAUR NEGATIVE (NEGATIVE)
[2019-03-07 14:13] LABS: ANTINUCLEAR ANTIBODIES DIRECT Negative (Negative)
== END ==
LOC: M SFHCPLAZ 09:16
PROVIDERS: ATTEND Family Medicine
DX: K13.79 Other lesions of oral mucosa (principal)

== ENCOUNTER → 2019-03-09 | Outpatient (REF) | payer OTHER ==
[2019-03-09 13:32] LABS: BASO % 0.7 % (0.0-1.0); EOS # 0.1 10^3/uL (0.0-0.50); EOS % 4.5 % (0.0-3.0); HEMATOCRIT 37.9 % (36.0-47.0); HEMOGLOBIN 12.2 g/dl (12.0-15.5); LYMPH # 0.8 10^3/uL (1.5-4.5); MEAN CORPUSCULAR HEMOGLOBIN 30.8 pg (27.0-33.0); MEAN CORPUSCULAR HGB CONC 32.2 g/dl (32.0-36.5); MEAN CORPUSCULAR VOLUME 95.7 fl (80.0-96.0); MONO # 0.3 10^3/uL (0.0-0.8); MONO % 11.7 % (0.0-5.0); NEUTROPHILS # 1.6 10^3/uL (1.8-7.7); NEUTROPHILS % 53.8 % (36.0-66.0); PLATELET COUNT, AUTOMATED 198 10^3/uL (150-450); RED BLOOD COUNT 3.96 10^6/uL (4.00-5.40); WHITE BLOOD COUNT 2.9 10^3/uL (4.0-10.0)
== END ==
LOC: M SFHCPLAZ 09:22
PROVIDERS: ATTEND Family Medicine
DX: D72.819 Decreased white blood cell count, unspecified (principal)

== ENCOUNTER → 2019-04-04 | Outpatient (CLI) | payer MEDICARE, MEDICAID ==
--- NOTE | 2019-04-05 01:24 | ECWPNPC ---
PATIENT NAME: MILLY DIAS : 1955 GENDER: FEMALE VISIT DATE: 04/04/2019 DISCHARGE DATE: 04/04/19 1000 VISIT LOCKED DATE TIME: PHYSICIAN: MIK DALLAS RESOURCE: MIK DALLAS REASON FOR APPOINTMENT 1. NECK/FIBRO HISTORY OF PRESENT ILLNESS HISTORY OF PRESENT ILLNESS: HERE FOR F/U OF CHRONIC NECK AND HEADACHE PAIN.LAST VISIT WAS IN FEBRUARY.HISTORY OF FIBROMYALGIA.BEING FOLLOWED BY RHEUMATOLOGY FOR ?AUTOIMMUNE PROCESS.RATING PAIN VAS 6/10. PAIN THE PATIENT DESCRIBES THE PAIN... THE PATIENT DESCRIBES THE PAIN... FALL RISK SCREENING: SCREENING :NO FALLS REPORTED IN THE LAST YEAR CURRENT MEDICATIONS TAKING VITAMIN C 500 MG CAPSULE ORALLY TAKING BETAMETHASONE DIPROPIONATE AUG 0.05 % GEL 1 APPLICATION TO AFFECTED AREA IN MOUTH EXTERNALLY BID TAKING CALCIUM & MAGNESIUM CARBONATES WITH VITAMIN K AND D ORAL 3 CAPLETS DAILY TAKING CLARITIN 10 MG TABLET 1 TABLET ORALLY ONCE A DAY TAKING BENADRYL ALLERGY 25 MG TABLET 1 TABLET ORALLY DAILY TAKING MIRALAX - POWDER 1 CAPFUL DISSOLVED IN4-8 OZ LIQUID NEEDED ORALLY ONCE A DAY TAKING MAY USE CBD OIL , NOTES: NONE IN PAST WEEK TAKING VITAMIN D (CHOLECALCIFEROL) 1000 UNIT CAPSULE 1 CAPSULE ORALLY ONCE A DAY TAKING KLONOPIN 1 MG TABLET 1 TABLET ORALLY BEFORE BEDTIME (ISTOP REF#: [id number]) TAKING RIZATRIPTAN BENZOATE 10 MG TABLET 1 TABLET NEEDED ONE TIME ORALLY ONCE A DAY TAKING SUMATRIPTAN SUCCINATE 6 MG/0.5ML KIT SUBCUTANEOUS TAKING VOLTAREN 1 % GEL 2G, MAX 8G IN 24 HOURS TRANSDERMAL THREE TIMES DAILY NEEDED TAKING FOSAMAX 70 MG TABLET 1 TABLET ORALLY ONCE A WEEK TAKING CYMBALTA 60 MG CAPSULE DELAYED RELEASE PARTICLES 2 CAPSULE ORALLY ONCE A DAY TAKING TRAMADOL HCL 50 MG TABLET 1 TAB ORALLY EVERY 6 HRS PRN FOR PAIN MDD4 NOT-TAKING SHINGRIX 50 MCG SUSPENSION RECONSTITUTED DIRECTED INTRAMUSCULAR DIRECTED NOT-TAKING ZONISAMIDE 100 MG CAPSULE TAKE ONE CAPSULE BY MOUTH EVERY DAY AT BEDTIME ORAL ONCE A DAY, NOTES: CURRENTLY TAKING 75 MG NOT-TAKING PHYSICAL THERAPY EVALUATE AND TREAT PHYSICAL THERAPY DIRECTED 1-3X/WEEK; DX M54.2 NOT-TAKING PRILOSEC OTC 20 MG TABLET DELAYED RELEASE 1 TABLET ORALLY DAILY, NOTES: NEEDED NOT-TAKING TRAMADOL HCL 50 MG TABLET 1 TABLET NEEDED ORALLY (ISTOP:[id number]) DAILY; MDD=1, NOTES: DUPLICATE NOT-TAKING PREDNISONE 1 MG TABLET 3 TABLET ORALLY ONCE A DAY NOT-TAKING PREDNISONE 1 MG TABLET 2 TABLETS DAILY X 2 WEEKS THEN 1 TABLET DAILY ORALLY ONCE A DAY NOT-TAKING ZOFRAN 4 MG TABLET 1 ORALLY NEEDED NOT-TAKING NAPROXEN 500 MG TABLET 1 TABLET WITH FOOD OR MILK NEEDED ORALLY EVERY 12 HRS NOT-TAKING TRAMADOL HCL ER 25 MG TABLET EXTENDED RELEASE 24 HOUR 1 TABLET ORALLY ONCE A DAY MEDICATION LIST REVIEWED AND RECONCILED WITH THE PATIENT PAST MEDICAL HISTORY FIBROMYALGIA OSTEOPOROSIS - PREVIOUSLY ON PROLIA INJECTIONS/NOW ON FOSAMAX (STARTED 05/2018) ABDOMINAL MIGRAINES PER NEUROLOGY DEPRESSION ANXIETY HYPERLIPIDEMIA ASCVD RISK 4.5% ON 12/2017 [place]ONOSCOPY ([place]) 2015 - REPEAT 5 YRS LEFT LUNG PLEURAL MASS - EMPYEMA CAVITARY OPACTIY IN RLL - QUANTIFERON GOLD TEST NEGATIVE 04/27 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 NORMAL FUNCTIONAL AEROBIC CAPACITY. NO EXERCISE INDUCED ARRTHYTMIAS. ALLERGIES PENICILLIN (FOR ALLERGIES USE ONLY): RASH - ALLERGY AVELOX: RASH - ALLERGY HAY FEVER DAIRY/GLUTEN: CONSTIPATION SURGICAL HISTORY SEPTOPLASTY-DERECK 1988 HYSTERECTOMY-TOTAL- WITH BSO @ [facility] 1994 TEMPORAL ARTERY BIOPSY 04/19/2018 [place]ONOSCOPY ([place]) 2015 - REPEAT 5 YRS PER PT FAMILY HISTORY FATHER: 62 YRS, FATHER FROM CANCER-BREAST CANCER-62 YO. [place] IN 50S, DIAGNOSED WITH HYPERTENSION, HEART DISEASE, CANCER MOTHER: ALIVE 87 YRS, HYPERTENSION 2 BROTHER(S) , 2 SISTER(S) . 2 SON(S) , 1 DAUGHTER(S) - HEALTHY. SISTER- CANCER-RECTAL (DX\\\\\\\\\\\\\\\\\\\\\\\\\\\\\\'D AGE 48) AND LIVER CANCER-56YO \\\\\\\\\\\\\\\\NCHILDREN ARE HEALHY. SOCIAL HISTORY GENERAL: TOBACCO USE ARE YOU A:FORMER SMOKER HOW LONG HAS IT BEEN SINCE YOU LAST SMOKED?> 10 YEARS HIV / HEP-C SCREENING HIV TEST OFFERED TO PATIENT:YES DATE OFFERED:11/30/2017 TEST ACCEPTED:NO HEP-C TEST OFFERED TO PATIENT:YES DATE OFFERED:11/30/2017 REASON:PATIENT DECLINED TEST ACCEPTED:NO REASON:OTHER (DOCUMENT IN NOTE) PT ALREADY TESTED OTHERS AT HOME: NONE. EDUCATION LEVEL OF EDUCATION:NOT FINISHED COLLEGE DIET: DAIRY AND GLUTEN FREE. LANGUAGE LANGUAGES SPOKEN:CAMBODIAN DOMESTIC VIOLENCE DO YOU FEEL SAFE IN YOUR ENVIRONMENT?YES RECREATIONAL DRUG USE DRUG USE?NO EXERCISE: WALKS. LEARNING BARRIERS / SPECIAL NEEDS CHANGE FROM LAST VISIT?NO BARRIERS TO LEARNING?NO HEARING IMPAIRED?NO VISION IMPAIRED?YES :CORRECTIVE LENSES PAIN CLINIC PFS, CLERGY, PUBLIC HEALTH REFERRALS HAS THE PATIENT BEEN EDUCATED REGARDING HIS/HER PLAN OF CARE?YES HAS THE PATIENT BEEN EDUCATED REGARDING PAIN, THE RISK FOR PAIN, THE IMPORTANCE OF EFFECTIVE PAIN MANAGEMENT, AND THE PAIN ASSESSMENT PROCESS?YES LATEX QUESTIONNAIRE LATEX ALLERGY : HAVE YOU EVER DEVELOPED ANY TYPE OF REACTION AFTER HANDLING LATEX PRODUCTS SUCH RUBBER GLOVES, CONDOMS, DIAPHRAGMS, BALLOONS, SOCKS, OR UNDERWEAR?NO LATEX ALLERGY : HAVE YOU EVER DEVELOPED ANY TYPE OF REACTION DURING OR AFTER DENTAL APPOINTMENT, VAGINAL/RECTAL EXAMINATION, SURGICAL PROCEDURE, OR ANY OTHER EXPOSURE?NO DATE ASKED : 01/31/2019 LATEX RISK : HAVE YOU EVER HAD ANY DIFFICULTY BREATHING OR HIVES AFTER EATING OR HANDLING ANY FRUITS, OR VEGETABLES; SUCH KIWI, BANANAS, STONE FRUITS, OR CHESTNUTSNO LATEX RISK : DO YOU HAVE A PREVIOUS PERSONAL HISTORY OF MORE THAN NINE SURGERIES, SPINA BIFIDA, OR REPEATED CATHERTIZATIONS? NO LATEX RISK : ARE YOU FREQUENTLY EXPOSED TO LATEX PRODUCTS IN YOUR OCCUPATION?NO CAFFEINE CAFFEINE USE?YES HOW OFTEN AND HOW MUCH? 2 CUPS OF COFFEE A DAY ADVANCE DIRECTIVE ADVANCE DIRECTIVE DISCUSSED WITH PATIENT:YES PT DOES NOT HAVE HCP. PT STATES SHE HAS INFORMATION AT HOME AND DECLINES ASSISTANCE AT THIS TIME.04-04-19 SYNAGOGUE [id number] CONGREGATIONAL MARITAL STATUS: .. ALCOHOL SCREENING DID YOU HAVE A DRINK CONTAINING ALCOHOL IN THE PAST YEAR?YES HOW OFTEN DID YOU HAVE SIX OR MORE DRINKS ON ONE OCCASION IN THE PAST YEAR?NEVER (0 POINTS) HOW MANY DRINKS DID YOU HAVE ON A TYPICAL DAY WHEN YOU WERE DRINKING IN THE PAST YEAR?1 OR 2 (0 POINTS) HOW OFTEN DID YOU HAVE A DRINK CONTAINING ALCOHOL IN THE PAST YEAR?MONTHLY OR LESS (1 POINT) POINTS1 INTERPRETATIONNEGATIVE OCCUPATION: RETIRED, CHILDCARE ON THE SIDE.. SEXUAL HX HAD SEX IN THE LAST 12 MONTHS (VAGINAL, ORAL, OR ANAL)?YES WITHWOMEN ONLY USE PROTECTION?NO HAVE YOU EVER HAD AN STD?NO REVIEWED WITH PT 01/03/19 01 BVREVIEWED WITH PT 04/04/19 0943 BV. HOSPITALIZATION/MAJOR DIAGNOSTIC PROCEDURE CHILD AND ABOVE WITH SURGERIES TONSILLECTOMY AGE 4 CELLULITIS FROM CAROL NAIL AGE 6 BILASTERAL PNEUMONIA WITH LEFT SIDED PLEURAL EFFUSION 05/05/18-05/11/18 PNEUMONA SAC DRAINED / PNEUMONA 06/27/18-06/30/18 REVIEW OF SYSTEMS REVIEWED BY: PROVIDER: MIK TREJO . CONSTITUTIONAL: ANY CHANGE IN YOUR MEDICAL CONDITION? YES, PT HAD FIRST ROUND OF BOTOX IN MID-FEBRUARY AT [facility] . CHILLS NO . FEVER NO . INFECTION: DO YOU HAVE NEW INFECTIONS? NO . DO YOU HAVE HISTORY OF MRSA? NO . MUSCULOSKELETAL: ANY NEW PATTERNS OF PAIN OR NUMBNESS? YES, PT STATES SHE HAS HAD NEW PAIN IN LOWER ABDOMEN FOR THE PAST MONTH. STATES IT FEELS LIKE "SORE MUSCLES" AND SHE EXPERIENCES IT INTERMITTENTLY WHEN UP AND WALKING. . GASTROENTEROLOGY: ANY NEW CHANGE IN BOWEL CONTROL? NO . GENITOURINARY: ANY NEW CHANGE IN BLADDER CONTROL? NO . IS THERE A CHANCE YOU COULD BE ? NO . HEMATOLOGY/LYMPH: DO YOU TAKE ANY BLOOD THINNERS? (FOR EXAMPLE- COUMADIN, PLAVIX, AGGRENOX, PLATEL, PRADAXA, OR XARELTO) NO . WHEN WAS YOUR LAST DOSE? DATE: TIME: . NEUROLOGY: HAVE YOU FALLEN IN THE PAST 12 MONTHS? NO . ANY NEW EXTREMITY NUMBNESS OR WEAKNESS? NO . CARDIOLOGY: DO YOU HAVE A PACEMAKER OR DEFIBRILLATOR? NO . RESPIRATORY: HAVE YOU BEEN SICK IN THE PAST WEEK? NO . FEVER NO . FLU LIKE SYMPTOMS? NO . COUGH NO . INTEGUMENTARY: DO YOU HAVE ANY RASHES OR OPEN SORES? NO . ALLERGIC/IMMUNO: ARE YOU ALLERGIC TO IV DYE? NO . ANY NEW ALLERGIES? NO . PSYCHIATRIC: DO YOU HAVE THOUGHTS OF HURTING YOURSELF OR SOMEONE ELSE? NO . ARE YOU ABUSED, NEGLECTED, OR IN AN UNSAFE ENVIRONMENT? NO . ENDOCRINOLOGY: ARE YOU DIABETIC? NO . OTHER: DO YOU NEED ANY PRESCRIPTIONS? NO . IF YES, PLEASE LIST: ____ . ANY NEW PROBLEMS WITH YOUR MEDICATIONS? NO . WHEN DID YOU LAST EAT? ____ . WHEN DID YOU LAST DRINK? ____ . WHAT DID YOU LAST DRINK? ____ . NAME OF PERSON DRIVING YOU HOME? ____ . DO YOU HAVE ANY OTHER QUESTIONS OR CONCERNS NO . VITAL SIGNS WT 125.8 LBS, HT 64 IN, BMI 21.59 INDEX, BP 129/55 MM HG, HR 94 /MIN, RR 18 /MIN, TEMP 98.6 F, OXYGEN SAT % 98%, NA INITIALS AW 0934, REVIEWED BY: BV. EXAMINATION GENERAL EXAMINATION: GENERAL APPEARANCE:AWAKE,ALERT ,PLEAASANT . PSYCHAFFECT NORMAL . LUNGS:LUNG GANDHI ARE CLEAR TO AUSCULTATION BILATERALLY. GOOD MOVEMENT OF AIR . HEART:S1, S2 IN A REGULAR RATE AND RHYTHM. NO SIGNIFICANT MURMURS, RUBS OR GALLOPS NOTED . ASSESSMENTS FIBROMYALGIA - M79.7 (PRIMARY) TREATMENT FIBROMYALGIA CONTINUE TRAMADOL HCL TABLET, 50 MG, 1 TAB, ORALLY, EVERY 6 HRS PRN FOR PAIN MDD4 NOTES: ISTOP REGISTRY REVIEWED AND DEMONSTRATES COMPLLIANCE. RECENT URINE TOXICOLOGY REVIEWED. NO UNAUTHORIZED MEDICATIONS. NO ILLICIT SUBSTANCES AND PRESCRIBED MEDICATIONS WERE PRESENT. , RISKS AND BENEFITS OF NARCOTIC/OPIOD MEDICATIONS WERE REVIEWED WITH PATIENT - THIS INCLUDES BUT IS NOT LIMITED TO RISK OF DEPENDANCE/DEVELOPMENT OF ADDICTION, MOOD DISTURBANCE AND DEPRESSION, OSTEOPOROSIS, HORMONAL AND LABIDAL CHANGES, RESPIRATORY DEPRESSION AND . PATIENT IS ADVISED NOT TO DRIVE OR DRINK ALCOHOL WHILE ON THESE MEDICATIONS. PROCEDURE CODES FA211 ESTABILISHED PATIENT [facility] CHARGE DISPOSITION & COMMUNICATION FOLLOW UP 3 MONTHS ELECTRONICALLY SIGNED BY NEIL CACERES ON 04/04/2019 AT 10:06 AM EDT DISCLAIMER : THIS IS A VISIT SUMMARY EXTRACTED FROM THE [employer] CHART. IT IS NOT A COPY OF THE [employer] PROGRESS NOTE. [place]
== END ==
LOC: M PAIN 09:30
PROVIDERS: ATTEND Nurse Practitioner Family
DX: M79.7 Fibromyalgia (principal); M81.0 Age-related osteoporosis without current pathological fracture; F32.9 Major depressive disorder, single episode, unspecified; F41.9 Anxiety disorder, unspecified; E78.5 Hyperlipidemia, unspecified; E05.80 Other thyrotoxicosis without thyrotoxic crisis or storm; K90.0 Celiac disease; Z87.891 Personal history of nicotine dependence; Z79.891 Long term (current) use of opiate analgesic; Z79.899 Other long term (current) drug therapy; Z88.0 Allergy status to penicillin; Z88.1 Allergy status to other antibiotic agents; Z91.011 Allergy to milk products

== ENCOUNTER → 2019-05-29 | Outpatient (CLI) | payer MEDICARE ==
[~2019-05-29] MED LIST changes: -DULO1CAP3 PO; +DULO1CAP6 PO
--- NOTE | 2019-05-29 16:39 | REP ---
REASON: Neck pain. No trauma what so ever. No priors. There is moderate degenerative disc space narrowing C5-6 and C6-7 with anterior and posterior osteophytic ridging at those levels, particularly at C5-6. Flexion and extension is not particularly limited radiographically. The facet joints are well aligned bilaterally. Vertebral body height and alignment is within normal limits. The intervertebral foramina are ample bilaterally. IMPRESSION:Chronic changes as described above. Electronically Signed by Mateo Virgen DO 05/29/2019 04:49 P
== END ==
LOC: M RAD 10:54
PROVIDERS: ATTEND Family Medicine
DX: M50.322 Other cervical disc degeneration at C5-C6 level (principal); M50.323 Other cervical disc degeneration at C6-C7 level; M25.78 Osteophyte, vertebrae

== ENCOUNTER → 2019-07-05 | Outpatient (CLI) | payer MEDICARE, MEDICAID | LOC: M PAIN 09:30 | PROVIDERS: ATTEND Nurse Practitioner Family | DX: M79.7 Fibromyalgia (principal); Z79.891 Long term (current) use of opiate analgesic; Z79.899 Other long term (current) drug therapy; Z88.0 Allergy status to penicillin; Z88.1 Allergy status to other antibiotic agents; Z91.011 Allergy to milk products; Z87.891 Personal history of nicotine dependence ==

== ENCOUNTER → 2019-07-20 | Outpatient (REF) | payer MEDICARE, MEDICAID ==
[~2019-07-20] MED LIST changes: +CLON0.5T2 PO; -CLON0.5T8 PO; -MAGN400T PO; +MAGN400T3 PO
[2019-07-20 12:31] LABS: BASO % 0.7 % (0.0-1.0); EOS # 0.1 10^3/uL (0.0-0.5); EOS % 3.3 % (0.0-3.0); HEMATOCRIT 41.5 % (36.0-47.0); HEMOGLOBIN 13.4 g/dl (12.0-15.5); LYMPH % 33.9 % (24.0-44.0); MEAN CORPUSCULAR HEMOGLOBIN 30.3 pg (27.0-33.0); MEAN CORPUSCULAR HGB CONC 32.3 g/dl (32.0-36.5); MEAN CORPUSCULAR VOLUME 93.9 fl (80.0-96.0); MONO # 0.3 10^3/uL (0.0-0.8); MONO % 10.2 % (0.0-5.0); NEUTROPHILS # 1.6 10^3/uL (1.5-8.5); NEUTROPHILS % 51.6 % (36.0-66.0); PLATELET COUNT, AUTOMATED 242 10^3/uL (150-450); RED BLOOD COUNT 4.42 10^6/uL (4.00-5.40)
[2019-07-20 13:06] LABS: ERYTHROCYTE SEDIMENTATION RATE 16 mm/hr (0-30)
[2019-07-20 13:17] LABS: ALBUMIN 4.1 GM/DL (3.2-5.2); ALT/SGPT 19 U/L (12-78); BILIRUBIN,TOTAL 0.4 MG/DL (0.2-1.0); BLOOD UREA NITROGEN 19 MG/DL (7-18); C REACTIVE PROTEIN QUANTITATIV < 0.30 MG/DL (0.00-0.30); CALCIUM LEVEL 9.4 MG/DL (8.8-10.2); CARBON DIOXIDE LEVEL 27 MEQ/L (21-32); CHLORIDE LEVEL 106 MEQ/L (98-107); CREATININE FOR GFR 0.99 MG/DL (0.55-1.30); FREE T4 0.76 NG/DL (0.76-1.46); GLOMERULAR FILTRATION RATE 59.9 (>45); GLUCOSE, FASTING 75 MG/DL (70-100); POTASSIUM SERUM 4.6 MEQ/L (3.5-5.1); SODIUM LEVEL 140 MEQ/L (136-145); TOTAL PROTEIN 6.7 GM/DL (6.4-8.2)
== END ==
LOC: M SFHCPLAZ 09:42
PROVIDERS: ATTEND Family Medicine
DX: M19.041 Primary osteoarthritis, right hand (principal); D72.819 Decreased white blood cell count, unspecified; E05.90 Thyrotoxicosis, unspecified without thyrotoxic crisis or storm

== ENCOUNTER → 2019-10-12 | Outpatient (REF) | payer MEDICARE, OTHER, MEDICAID ==
[2019-10-12 15:23] LABS: BASO % 0.2 % (0.0-1.0); HEMATOCRIT 40.2 % (36.0-47.0); HEMOGLOBIN 12.6 g/dl (12.0-15.5); LYMPH # 0.7 10^3/uL (1.5-5.0); MEAN CORPUSCULAR HEMOGLOBIN 29.6 pg (27.0-33.0); MEAN CORPUSCULAR HGB CONC 31.3 g/dl (32.0-36.5); MEAN CORPUSCULAR VOLUME 94.6 fl (80.0-96.0); MONO # 0.2 10^3/uL (0.0-0.8); MONO % 3.3 % (0.0-5.0); NEUTROPHILS # 3.6 10^3/uL (1.5-8.5); NEUTROPHILS % 79.8 % (36.0-66.0); PLATELET COUNT, AUTOMATED 240 10^3/uL (150-450); RED BLOOD COUNT 4.25 10^6/uL (4.00-5.40); WHITE BLOOD COUNT 4.6 10^3/uL (4.0-10.0)
[2019-10-12 16:04] LABS: ERYTHROCYTE SEDIMENTATION RATE 20 mm/hr (0-30)
== END ==
LOC: M SFHCPLAZ 14:11
PROVIDERS: ATTEND Family Medicine
DX: M25.50 Pain in unspecified joint (principal)

== ENCOUNTER → 2020-11-06 | Outpatient (CLI) | payer MEDICARE, MEDICAID ==
--- NOTE | 2020-11-07 04:35 | REPPI ---
INDICATION: S98.91XA INJURY OF RIGHT KNEE, INTIAL ENCOUNTER COMPARISON: None. TECHNIQUE: AP, lateral, bilateral oblique and sunrise views. FINDINGS: The osseous structures and joint spaces are intact and age-appropriate. No significant overt osteoarthritic degenerative changes are appreciated. There is no evidence for acute fracture or dislocation. No joint effusion is appreciated. Surrounding soft tissues are unremarkable. No subcutaneous emphysema or radiodense foreign body. IMPRESSION: Age-appropriate right knee examination. No acute fracture or dislocation. <Electronically signed by Jhon Coleman > 11/07/20 [id number]
== END ==
LOC: M PLAIMG 14:23
PROVIDERS: ATTEND Physician Assistant
DX: S89.91XA Unspecified injury of right lower leg, initial encounter (principal); X19.XXXA Contact with other heat and hot substances, initial encounter; Y92.9 Unspecified place or not applicable; Y99.9 Unspecified external cause status

== ENCOUNTER → 2021-05-12 | Outpatient (CLI) | payer MEDICARE, MEDICAID ==
[~2021-05-12] MED LIST changes: +ABIL1TAB13 PO; +BOTO200I SC
== END ==
LOC: M LABSMTC 09:01
PROVIDERS: ATTEND Anesthesiology
DX: Z01.812 Encounter for preprocedural laboratory examination (principal); Z20.822 Contact with and (suspected) exposure to COVID-19

== ENCOUNTER → 2021-07-31 | Outpatient (CLI) | payer MEDICARE, MEDICAID ==
[~2021-07-31] MED LIST changes: -MAGN400T3 PO; +MAGN400T33 PO
--- NOTE | 2021-07-31 15:36 | DEXAMM ---
INDICATION: AGE RELATED OSTEOPOROSIS W/O CURRENT FX. COMPARISON: 05/01/2019 as well as other prior exams. TECHNIQUE: Bone density was measured using dual-energy x-ray absorptiometry (DEXA). FINDINGS: AP SPINE L1-L4 BMD 0.863 g/cm2 Young Adult T-Score -2.7 Age Matched Z-Score -1.1. LT FEMUR, TOTAL BMD 0.799 g/cm2 Young Adult T-Score -1.7 Age Matched Z-Score -0.3. LT NECK BMD 0.726 g/cm2 Young Adult T-Score -2.2 Age Matched Z-Score -0.7. RT FEMUR, TOTAL BMD 0.823 g/cm2 Young Adult T-Score -1.5 Age Matched Z-Score -0.1. RT NECK BMD 0.764 g/cm2 Young Adult T-Score -2.0 Age Matched Z-Score -0.4. IMPRESSION: There is osteoporosis of the spine. There is low bone density of the left hip. There is low bone density of the right hip. The density of the spine has increased 7.3% since the initial exam on 03/28/2012. The density of the spine decreased 2.3% since most recent exam on 05/01/2019. The density of the left hip has decreased 1.2% since initial exam on 03/28/2012. The density of the left hip has increased 1.9% since most recent exam on 05/01/2019. The density of the right hip has increased 0.9% since the initial exam on 05/01/2019. FOLLOW-UP: Recommendation for the next bone density exam: 2 years. <Electronically signed by Arthur Maldonado > 07/31/21 0662
== END ==
LOC: M WHC 13:02
PROVIDERS: ATTEND Family Medicine
DX: Z13.820 Encounter for screening for osteoporosis (principal); M81.0 Age-related osteoporosis without current pathological fracture; M85.851 Other specified disorders of bone density and structure, right thigh; M85.852 Other specified disorders of bone density and structure, left thigh

== ENCOUNTER → 2021-08-29 | Outpatient (CLI) | payer MEDICARE, MEDICAID ==
--- NOTE | 2021-08-29 09:03 | REPMRS ---
Patient History The patient states she has not had a clinical breast exam in over a year. Family history of breast cancer at age 59 in father, colorectal cancer at age 49 in sister. Benign stereotactic core biopsy of the right breast, 2014. No Hormone Replacement Therapy Indicated problem(s): bilateral pain for 6 months. Patient states bilat intermittent breast/ nipple pain for 6 months Diagnostic Bilateral Mammo: August 29, 2021 - Exam #: [id number] Bilateral CC and MLO view(s) were taken. Technologist: Blanche Monk, Technologist Prior study comparison: May 01, 2019, bilateral digital woman screen mammo performed at [facility]. January 31, 2018, digital woman screen mammo performed at [facility]. FINDINGS: There are scattered fibroglandular densities. Screening. Digital screening (2D) mammography was performed bilaterally in the CC and MLO projections. Additionally, breast tomosynthesis (3D mammography) was performed bilaterally in the CC and MLO projections. Todays exam was compared to the prior exam/exams. By history, the patient has had intermittent bilateral breast/nipple pain x 6 months. The Volpara volumetric breast density category is B, there are scattered areas of fibroglandular densities. There is a stable biopsy clip in the right breast. The breasts are unchanged in size and shape. There are no mian-soft tissue densities or spiculated masses. There is no internal architectural distortion. There are no suspicious mian-calcific clusters. Skin thickening or nipple retraction is not present. IMPRESSION: BI-RADS Category 2- Benign Findings. There is no evidence of malignant alteration of the breasts. Followup examination recommended in one year. The lifetime Tyrer-Cuzick score is 8.0% This mammogram was read with the assistance of [employer],an FDA approved computer aided detection system for mammography. Negative x-ray reports should not delay surgical consultation if a dominant or clinically suspicious mass is present. Not all breast cancers can be identified by mammography. Therefore, we recommend that you continue to perform regular breast self-examination and physical examination and then promptly contact your physician of any concerns or changes. Adenosis and dense breasts may obscure an underlying neoplasm. No significant changes when compared with prior studies. Assessment: BI-RADS/ACR category 2 mammogram. Benign Findings. Recommendation Routine screening mammogram of both breasts in 1 year. Electronically Signed By: David Pollock MD 08/29/21 0902
== END ==
LOC: M WHC 07:57
PROVIDERS: ATTEND Family Medicine
DX: N64.4 Mastodynia (principal)
CPT/HCPCS: 77066; G0279

== ENCOUNTER → 2021-12-09 | Outpatient (CLI) | payer MEDICARE, MEDICAID ==
[~2021-12-09] MED LIST changes: -SUMA4INJ3 SC; +SUMA4INJ6 SC
[2021-12-09 12:58] LABS: BASO % 1.3 % (0.0-1.0); EOS # 0.1 10^3/uL (0.0-0.5); HEMATOCRIT 41.3 % (36.0-47.0); HEMOGLOBIN 13.6 g/dl (12.0-15.5); MEAN CORPUSCULAR HEMOGLOBIN 30.2 pg (27.0-33.0); MEAN CORPUSCULAR HGB CONC 32.9 g/dl (32.0-36.5); MEAN CORPUSCULAR VOLUME 91.8 fl (80.0-96.0); MONO # 0.4 10^3/uL (0.0-0.8); MONO % 11.6 % (2.0-8.0); NEUTROPHILS # 1.5 10^3/uL (1.5-8.5); NEUTROPHILS % 49.8 % (36.0-66.0); PLATELET COUNT, AUTOMATED 232 10^3/uL (150-450)
[2021-12-09 13:46] LABS: ALBUMIN 3.7 GM/DL (3.2-5.2); ALT/SGPT 19 U/L (12-78); BILIRUBIN,TOTAL 0.5 MG/DL (0.2-1.0); BLOOD UREA NITROGEN 13 MG/DL (7-18); CALCIUM LEVEL 9.6 MG/DL (8.8-10.2); CARBON DIOXIDE LEVEL 32 MEQ/L (21-32); CHLORIDE LEVEL 106 MEQ/L (98-107); CHOLESTEROL LEVEL 219 MG/DL (<200); CHOLESTEROL RISK RATIO 3.421 (<5); CREATININE FOR GFR 0.95 MG/DL (0.55-1.30); FERRITIN 18 NG/ML (8-252); FREE T4 0.75 NG/DL (0.76-1.46); GLOMERULAR FILTRATION RATE > 60.0 (>45); GLUCOSE, FASTING 76 MG/DL (70-100); HDL CHOLESTEROL 64 MG/DL (>40); IRON (FE) 107 UG/DL (50-170); LDL CHOLESTEROL 128 MG/DL (<100); NON-HDL-C 155 MG/DL; PERCENT SATURATION 39.5 % (13.2-45.0); POTASSIUM SERUM 4.7 MEQ/L (3.5-5.1); SODIUM LEVEL 141 MEQ/L (136-145); TOTAL IRON BINDING CAPACITY 271 UG/DL (250-450); TOTAL PROTEIN 6.2 GM/DL (6.4-8.2); TRIGLYCERIDES LEVEL 136 MG/DL (<150)
[2021-12-09 14:18] LABS: TOTAL 25(OH) VITAMIN D 37.5 NG/ML (30.0-100.0)
== END ==
LOC: M PLALAB 10:01
PROVIDERS: ATTEND Family Medicine
DX: E05.90 Thyrotoxicosis, unspecified without thyrotoxic crisis or storm (principal); E55.9 Vitamin D deficiency, unspecified; E78.2 Mixed hyperlipidemia; D63.8 Anemia in other chronic diseases classified elsewhere; D72.819 Decreased white blood cell count, unspecified

== ENCOUNTER → 2022-06-22 | Outpatient (CLI) | payer MEDICARE, MEDICAID ==
[~2022-06-22] MED LIST changes: +LEVO1TAB40 PO; -LEVO750T13 PO; +RIME75TA PO
== END ==
LOC: M LABSMTC 11:23
PROVIDERS: ATTEND Anesthesiology
DX: Z01.818 Encounter for other preprocedural examination (principal); Z11.52 Encounter for screening for COVID-19

== ENCOUNTER 2022-06-26 07:52 | Day surgery (SDC) | payer MEDICARE, MEDICAID ==
[~2022-06-26] VITALS: Ht 160 cm; Wt 58.1 kg
[~2022-06-26 07:52] MED LIST changes: +NS 1,000 ML IV ONE
[2022-06-26 10:15] VITALS: BP 120/58
== END 2022-06-26 10:27 | disposition home or self-care (01) ==
LOC: M OPP 07:52
PROVIDERS: ATTEND Internal Medicine Gastroenterology
DX: Z12.11 Encounter for screening for malignant neoplasm of colon (principal); Z80.0 Family history of malignant neoplasm of digestive organs; Q39.4 Esophageal web; Z79.891 Long term (current) use of opiate analgesic; Z79.899 Other long term (current) drug therapy; Z88.0 Allergy status to penicillin; Z88.1 Allergy status to other antibiotic agents; F17.210 Nicotine dependence, cigarettes, uncomplicated; M79.7 Fibromyalgia; G43.909 Migraine, unspecified, not intractable, without status migrainosus; F32.9 Major depressive disorder, single episode, unspecified; F41.9 Anxiety disorder, unspecified; Z80.3 Family history of malignant neoplasm of breast; Z80.8 Family history of malignant neoplasm of other organs or systems
CPT/HCPCS: 43239; 43450; 88305; G0105

== ENCOUNTER → 2022-09-10 | Outpatient (CLI) | payer MEDICARE, MEDICAID ==
[~2022-09-10] MED LIST changes: -NS 1,000 ML IV ONE
== END ==
LOC: M PLARAD 09:34
PROVIDERS: ATTEND Pain Medicine Interventional Pain Medicine
DX: M47.812 Spondylosis without myelopathy or radiculopathy, cervical region (principal)

== ENCOUNTER → 2022-11-03 | Outpatient (CLI) | payer MEDICARE, MEDICAID ==
[2022-11-03 13:22] LABS: BASO % 0.8 % (0.0-1.0); EOS # 0.1 10^3/uL (0.0-0.5); EOS % 2.8 % (0.0-3.0); HEMATOCRIT 43.7 % (36.0-47.0); HEMOGLOBIN 13.7 g/dl (12.0-15.5); LYMPH # 1.4 10^3/uL (1.5-5.0); LYMPH % 38.4 % (24.0-44.0); MEAN CORPUSCULAR HEMOGLOBIN 29.8 pg (27.0-33.0); MEAN CORPUSCULAR HGB CONC 31.4 g/dl (32.0-36.5); MEAN CORPUSCULAR VOLUME 95.2 fl (80.0-96.0); MONO # 0.4 10^3/uL (0.0-0.8); NEUTROPHILS # 1.7 10^3/uL (1.5-8.5); NEUTROPHILS % 46.7 % (36.0-66.0); PLATELET COUNT, AUTOMATED 241 10^3/uL (150-450); RED BLOOD COUNT 4.59 10^6/uL (4.00-5.40); WHITE BLOOD COUNT 3.5 10^3/uL (4.0-10.0)
[2022-11-03 13:49] LABS: ALBUMIN 4.1 G/DL (3.2-5.2); ALKALINE PHOSPHATASE 67 U/L (46-116); ALT/SGPT 12 U/L (7.0-40); AST/SGOT 19 U/L (<34); BILIRUBIN,TOTAL 0.3 MG/DL (0.3-1.2); BLOOD UREA NITROGEN 21 MG/DL (9-23); CALCIUM LEVEL 10.1 MG/DL (8.3-10.6); CARBON DIOXIDE LEVEL 30 MMOL/L (20-31); CHLORIDE LEVEL 105 MMOL/L (98-107); CREATININE FOR GFR 0.97 MG/DL (0.55-1.30); GLOMERULAR FILTRATION RATE > 60.0 (>45); GLUCOSE, FASTING 88 MG/DL (74-106); IRON (FE) 119 UG/DL (50-170); POTASSIUM SERUM 4.8 MMOL/L (3.5-5.1); SODIUM LEVEL 139 MMOL/L (136-145); TOTAL 25(OH) VITAMIN D 56.8 NG/ML (20.0-100.0); TOTAL PROTEIN 6.5 G/DL (5.7-8.2)
[2022-11-03 13:50] LABS: THYROID STIMULATING HORMONE 1.144 uIU/ML (0.55-4.78)
== END ==
LOC: M PLALAB 11:14
PROVIDERS: ATTEND Physician Assistant
DX: R53.83 Other fatigue (principal)

== ENCOUNTER → 2023-02-08 | Outpatient (CLI) | payer MEDICAID, MEDICARE | LOC: M WHC 10:31 | PROVIDERS: ATTEND Physician Assistant | DX: Z12.31 Encounter for screening mammogram for malignant neoplasm of breast (principal) ==

== ENCOUNTER 2023-07-17 16:58 | Emergency (ER) | payer MEDICARE ==
[~2023-07-17] VITALS: Ht 160 cm; Wt 61.1 kg
[2023-07-17] MEDS ORDERED: ACETAMINOPHEN 500 MG TAB PO ONE (19:25)
[2023-07-17 19:54] LABS: BASO % 0.5 % (0.0-1.0); HEMATOCRIT 42.2 % (36.0-47.0); HEMOGLOBIN 14.1 g/dl (12.0-15.5); LYMPH # 0.6 10^3/uL (1.5-5.0); LYMPH % 13.5 % (24.0-44.0); MEAN CORPUSCULAR HEMOGLOBIN 30.7 pg (27.0-33.0); MEAN CORPUSCULAR HGB CONC 33.4 g/dl (32.0-36.5); MEAN CORPUSCULAR VOLUME 91.9 fl (80.0-96.0); MONO # 0.2 10^3/uL (0.0-0.8); MONO % 5.6 % (2.0-8.0); NEUTROPHILS # 3.5 10^3/uL (1.5-8.5); NEUTROPHILS % 80.2 % (36.0-66.0); PLATELET COUNT, AUTOMATED 201 10^3/uL (150-450); RED BLOOD COUNT 4.59 10^6/uL (4.00-5.40); WHITE BLOOD COUNT 4.3 10^3/uL (4.0-10.0)
[2023-07-17 20:08] LABS: BLOOD UREA NITROGEN 14 MG/DL (9-23); CALCIUM LEVEL 9.1 MG/DL (8.3-10.6); CARBON DIOXIDE LEVEL 27 MMOL/L (20-31); CHLORIDE LEVEL 104 MMOL/L (98-107); CREATININE FOR GFR 0.89 MG/DL (0.55-1.30); GLOMERULAR FILTRATION RATE > 60.0 (>45); GLUCOSE, FASTING 117 MG/DL (74-106); POTASSIUM SERUM 5.5 MMOL/L (3.5-5.1); SODIUM LEVEL 134 MMOL/L (136-145)
[2023-07-17] MEDS ORDERED: DOXYCYCLINE HYCLATE 100MG TABLET PO ONE (22:00)
[2023-07-17] MEDS ORDERED: NITROFURANTOIN (MACROBID) 100 MG CAP PO ONE (22:00)
[2023-07-17] MEDS ORDERED: MACR100C43 PO (22:04)
[2023-07-17] MEDS ORDERED: DOXY-443 PO (22:04)
[2023-07-17 22:19] VITALS: BP 127/61; TEMP 99.5; O2SAT 100
== END 2023-07-17 22:20 | disposition home or self-care (01) ==
LOC: M ED 16:58
DX: J18.9 Pneumonia, unspecified organism (principal); N39.0 Urinary tract infection, site not specified; M79.7 Fibromyalgia; E78.5 Hyperlipidemia, unspecified; K21.9 Gastro-esophageal reflux disease without esophagitis; Z79.899 Other long term (current) drug therapy; Z88.0 Allergy status to penicillin; Z88.8 Allergy status to other drugs, medicaments and biological substances

== ENCOUNTER → 2023-07-23 | Outpatient (CLI) | payer MEDICARE ==
[~2023-07-23] MED LIST changes: +DOXY-443 PO; +MACR100C43 PO
== END ==
LOC: M PLAIMG 15:06
PROVIDERS: ATTEND Physician Assistant
DX: J18.9 Pneumonia, unspecified organism (principal)

== ENCOUNTER 2023-11-09 06:58 | Day surgery (SDC) | payer MEDICARE ==
[~2023-11-09] VITALS: Ht 160 cm; Wt 62.1 kg
[~2023-11-09 06:58] MED LIST changes: +ARIP1TAB6 PO; +NS 1,000 ML IV ONE
[2023-11-09] MEDS ORDERED: propofoL 200 MG/20 ML VIAL As Ordered ONE (07:14)
[2023-11-09 08:58] VITALS: BP 107/55; TEMP 96.2; O2SAT 97
== END 2023-11-09 09:00 | disposition home or self-care (01) ==
LOC: M OPP 06:58
PROVIDERS: ATTEND Internal Medicine Gastroenterology
DX: Z80.0 Family history of malignant neoplasm of digestive organs (principal); Q43.8 Other specified congenital malformations of intestine; Z87.891 Personal history of nicotine dependence; G47.30 Sleep apnea, unspecified; Z79.891 Long term (current) use of opiate analgesic; Z79.899 Other long term (current) drug therapy

== ENCOUNTER → 2023-12-30 | Outpatient (CLI) | payer MEDICARE ==
[~2023-12-30] MED LIST changes: -NS 1,000 ML IV ONE
[2023-12-30 10:49] LABS: BASO % 0.9 % (0.0-1.0); EOS # 0.1 10^3/uL (0.0-0.5); EOS % 3.4 % (0.0-3.0); HEMATOCRIT 42.9 % (36.0-47.0); HEMOGLOBIN 13.7 g/dl (12.0-15.5); LYMPH # 1.6 10^3/uL (1.5-5.0); LYMPH % 44.3 % (24.0-44.0); MEAN CORPUSCULAR HEMOGLOBIN 30.2 pg (27.0-33.0); MEAN CORPUSCULAR HGB CONC 31.9 g/dl (32.0-36.5); MEAN CORPUSCULAR VOLUME 94.7 fl (80.0-96.0); MONO # 0.3 10^3/uL (0.0-0.8); MONO % 9.4 % (2.0-8.0); NEUTROPHILS # 1.5 10^3/uL (1.5-8.5); NEUTROPHILS % 41.7 % (36.0-66.0); PLATELET COUNT, AUTOMATED 242 10^3/uL (150-450); RED BLOOD COUNT 4.53 10^6/uL (4.00-5.40); WHITE BLOOD COUNT 3.5 10^3/uL (4.0-10.0)
[2023-12-30 11:27] LABS: TOTAL 25(OH) VITAMIN D 62.7 NG/ML (20.0-100.0)
[2023-12-30 11:28] LABS: FERRITIN 24.6 NG/ML (7.3-270.7); THYROID STIMULATING HORMONE 2.511 uIU/ML (0.55-4.78)
[2023-12-30 11:29] LABS: FREE T4 0.97 NG/DL (0.89-1.76)
[2023-12-30 11:32] LABS: ALBUMIN 3.9 G/DL (3.2-5.2); BILIRUBIN,TOTAL 0.4 MG/DL (0.3-1.2); CALCIUM LEVEL 9.8 MG/DL (8.3-10.6); CHOLESTEROL RISK RATIO 3.43 (<5); CREATININE FOR GFR 1.13 MG/DL (0.55-1.30); GLOMERULAR FILTRATION RATE 50.8 (>45); HDL CHOLESTEROL 65.2 MG/DL (>40); LDL CHOLESTEROL 138.2 MG/DL (<100); NON-HDL-C 158.8 MG/DL; PERCENT SATURATION 31.6 % (13.2-45.0); POTASSIUM SERUM 4.3 MMOL/L (3.5-5.1); TOTAL PROTEIN 6.4 G/DL (5.7-8.2)
== END ==
LOC: M PLALAB 08:55
PROVIDERS: ATTEND Physician Assistant
DX: R06.02 Shortness of breath (principal); R07.9 Chest pain, unspecified; D50.9 Iron deficiency anemia, unspecified; E07.9 Disorder of thyroid, unspecified

== ENCOUNTER → 2024-01-07 | Outpatient (CLI) | payer MEDICARE | LOC: M WHC 10:36 | PROVIDERS: ATTEND Physician Assistant | DX: M81.0 Age-related osteoporosis without current pathological fracture (principal) ==

== ENCOUNTER → 2024-02-09 | Outpatient (CLI) | payer MEDICARE ==
[~2024-02-09] MED LIST changes: +DOXY-323 PO; -DOXY-443 PO; -SUMA4INJ6 SC; +SUMA4PEN SC
== END ==
LOC: M PLAIMG 10:06
PROVIDERS: ATTEND Physician Assistant
DX: M25.511 Pain in right shoulder (principal); M47.816 Spondylosis without myelopathy or radiculopathy, lumbar region

== ENCOUNTER → 2024-03-02 | Outpatient (CLI) | payer MEDICARE | LOC: M RAD 09:06 | PROVIDERS: ATTEND Physician Assistant | DX: R10.0 Acute abdomen (principal) ==

== ENCOUNTER → 2024-06-27 | Outpatient (CLI) | payer MEDICARE ==
[2024-06-27 14:48] LABS: BASO % 0.6 % (0.0-1.0); EOS # 0.1 10^3/uL (0.0-0.5); EOS % 2.8 % (0.0-3.0); HEMATOCRIT 40.5 % (36.0-47.0); LYMPH # 1.1 10^3/uL (1.5-5.0); LYMPH % 30.2 % (24.0-44.0); MEAN CORPUSCULAR HEMOGLOBIN 30.4 pg (27.0-33.0); MEAN CORPUSCULAR HGB CONC 32.1 g/dl (32.0-36.5); MEAN CORPUSCULAR VOLUME 94.8 fl (80.0-96.0); MONO # 0.4 10^3/uL (0.0-0.8); MONO % 10.2 % (2.0-8.0); NEUTROPHILS % 55.9 % (36.0-66.0); PLATELET COUNT, AUTOMATED 235 10^3/uL (150-450); RED BLOOD COUNT 4.27 10^6/uL (4.00-5.40); WHITE BLOOD COUNT 3.5 10^3/uL (4.0-10.0)
[2024-06-27 15:42] LABS: ALBUMIN 3.8 G/DL (3.2-5.2); CALCIUM LEVEL 10.1 MG/DL (8.3-10.6); CREATININE FOR GFR 1.03 MG/DL (0.55-1.30); GLOMERULAR FILTRATION RATE 56.4 (>39); PHOSPHORUS LEVEL 3.7 MG/DL (2.4-5.1); POTASSIUM SERUM 4.4 MMOL/L (3.5-5.1)
== END ==
LOC: M PLAIMG 10:56
PROVIDERS: ATTEND Physician Assistant
DX: S49.92XA Unspecified injury of left shoulder and upper arm, initial encounter (principal); M25.512 Pain in left shoulder; W18.30XA Fall on same level, unspecified, initial encounter; Y92.009 Unspecified place in unspecified non-institutional (private) residence as the place of occurrence of the external cause

== ENCOUNTER → 2024-07-01 | Outpatient (CLI) | payer MEDICARE, MEDICAID | LOC: M RAD 14:49 | PROVIDERS: ATTEND Physician Assistant | DX: M25.512 Pain in left shoulder (principal) ==

== ENCOUNTER → 2025-06-27 | Outpatient (CLI) | payer MEDICARE, MEDICAID ==
[~2025-06-27] MED LIST changes: -DOXY-323 PO; +DOXY-441 PO
[2025-06-27 14:03] LABS: ESTIMATED AVERAGE GLUCOSE 108.0 MG/DL (60-110)
[2025-06-27 14:11] LABS: ALT/SGPT 12.0 U/L (7.0-40); AST/SGOT 17.0 U/L (<34); CALCIUM LEVEL 9.2 MG/DL (8.3-10.6); CARBON DIOXIDE LEVEL 27.0 MMOL/L (20-31); CHLORIDE LEVEL 105.0 MMOL/L (98-107); CHOLESTEROL LEVEL 242.0 MG/DL (<200); CHOLESTEROL RISK RATIO 3.67 (<5); CREATININE FOR GFR 0.94 MG/DL (0.55-1.30); GLOMERULAR FILTRATION RATE 64.9 (>39); LDL CHOLESTEROL 154.3 MG/DL (<100); NON-HDL-C 176.1 MG/DL; POTASSIUM SERUM 4.6 MMOL/L (3.5-5.1); SODIUM LEVEL 139.0 MMOL/L (136-145); TRIGLYCERIDES LEVEL 109.0 MG/DL (<150)
[2025-06-27 14:12] LABS: TOTAL 25(OH) VITAMIN D 40.7 NG/ML (20.0-100.0)
[2025-06-27 14:13] LABS: FREE T4 0.97 NG/DL (0.89-1.76)
== END ==
LOC: M PLALAB 11:40
PROVIDERS: ATTEND Student in an Organized Health Care Education/Training Program
DX: R00.2 Palpitations (principal); E78.2 Mixed hyperlipidemia; Z79.899 Other long term (current) drug therapy

== ENCOUNTER → 2025-07-23 | Outpatient (CLI) | payer MEDICARE, MEDICAID | LOC: M WHC 12:07 | PROVIDERS: ATTEND Family Medicine | DX: Z12.31 Encounter for screening mammogram for malignant neoplasm of breast (principal); R92.323 Mammographic fibroglandular density, bilateral breasts ==